=== PATIENT | female | born 1955 | race Caucasian/White ===

== ENCOUNTER 2023-07-29 15:51 | Inpatient (IN) | payer MEDICAID, SELFPAY ==
[2023-07-29] VITALS (11 sets, daily range): BP systolic 122–145; BP diastolic 58–98; PULSE 82–97; RESP 18–30; TEMP 35.8–36.6; O2SAT 94–100; BMI 31.6; BMI 31.2
--- NOTE | 2023-07-29 16:04 | EKG12_ITS ---
Test Reason : SOB Blood Pressure : / mmHG Vent. Rate : 089 BPM Atrial Rate : 089 BPM P-R Int : 152 ms QRS Dur : 068 ms QT Int : 350 ms P-R-T Axes : 082 043 070 degrees QTc Int : 425 ms Normal sinus rhythm Low voltage QRS Borderline ECG Confirmed by Nagi Queen ([id number]), editor house organ RICARDA BROWN ([id number]) on 07/30/2023 10:47:43 AM Referred By: UG/TL Confirmed By:Nagi Queen
--- NOTE | 2023-07-29 16:06 | EX.ED.DYSGE1 ---
HPI History of Present Illness Chief Complaint: Shortness of Breath Informant: patient Narrative Narrative: Increasing dyspnea and nonproductive cough with wheezing over 4 days. Stage IV COPD with remote tobacco followed by Dr. Nicole pulmonology. Denies diabetes history. 3 L chronic oxygen at rest 4 to 5 L with exertion. Increasing her aerosol treatments over last few days. She went to urgent care due to breathing issues EMS was contacted and sent here. She was brought on 15 nonrebreather taken down to her 4 L nasal cannula. Status post DuoNeb by EMS. Reported wheezing at facility. Discomfort right lower lungs. Last hospitalization 2010 per patient. Reports vaccinated for both COVID and flu denies COVID infections in the past. [facility] Medical History (Updated 07/29/23 @ 20:07 by Brittany Peterson) Chronic GERD COPD (chronic obstructive pulmonary disease) Fibromyalgia GERD (gastroesophageal reflux disease) HLD (hyperlipidemia) Hypothyroidism Myocardial infarct On home oxygen therapy Osteoarthritis Osteoporosis Stomach ulcer Stroke/cerebrovascular accident Home Medications alendronate 70 mg tablet 70 mg PO TH OSTEOPEROSIS 04/22/14 [History Last Taken 07/23/23] aspirin 81 mg chewable tablet 81 mg PO DAILY@0800 HEART HEALTH 04/22/14 [History Last Taken 07/29/23] estradiol 1 mg tablet 1 mg PO QHS HORMONES 04/22/14 [History Last Taken 07/28/23] furosemide 40 mg tablet 40 mg PO BID EDEMA 04/22/14 [History Last Taken 07/29/23] loratadine 10 mg tablet (Allergy Relief (loratadine)) 10 mg PO DAILY ALLERGIES 04/22/14 [History Last Taken 07/29/23] simvastatin 40 mg tablet 40 mg PO QHS CHOLESTEROL 04/22/14 [History Last Taken 07/28/23] tramadol 50 mg tablet 50 mg PO Q8H PRN PAIN 04/22/14 [History Last Taken 07/29/23] mometasone-formoterol HFA 200 mcg-5 mcg/actuation aerosol inhaler (Dulera) 2 puff inhalation BID COPD 11/18/15 [History Last Taken 07/29/23] albuterol sulfate 2.5 mg/3 mL (0.083 %) solution for nebulization 2.5 mg inhalation Q4H PRN WHEEZING 07/29/23 [History Last Taken 07/29/23] calcium carbonate 500 mg calcium (1,250 mg) chewable tablet (Calcium 500) 1,000 mg PO DAILY SUPPLEMENT 07/29/23 [History Last Taken 07/29/23] guaifenesin 600 mg tablet, extended release 12 hr (Mucus Relief ER) 1,200 mg PO BID PRN CONGESTION 07/29/23 [History Last Taken 07/29/23] levothyroxine 150 mcg tablet 150 mcg PO DAILY THYROID 07/29/23 [History Last Taken 07/29/23] magnesium oxide 500 mg PO DAILY SUPPLEMENT 07/29/23 [History Last Taken 07/29/23] melatonin 10 mg tablet 50 mg PO QHS SLEEP 07/29/23 [History Last Taken 07/28/23] pantoprazole 20 mg tablet,delayed release 20 mg PO DAILY ACID REFLUX 07/29/23 [History Last Taken 07/29/23] sennosides 8.6 mg tablet (senna) 8.6 mg PO BID PRN CONSTIPATION 07/29/23 [History Last Taken 07/29/23] theophylline 80 mg/15 mL oral solution 80 mg PO QHS COPD 07/29/23 [History Last Taken 07/28/23] tiotropium bromide 2.5 mcg/actuation mist for inhalation (Spiriva Respimat) 2 puff inhalation DAILY COPD 07/29/23 [History Last Taken 07/29/23] Allergy/AdvReac Type Severity Reaction Status Date / Time amoxicillin [Amoxicillin] Allergy Hives Verified 11/18/15 16:02 Social History Smoking Status: Former smoker ROS ROS ED Constitutional Constitutional ED: Denies chills, fever(s) or sweats Eyes Eyes: Denies change in vision ENT ENT ED: Denies dysphagia or sore throat Cardiovascular Cardiovascular: Denies chest pain, leg edema, palpitations or racing heartbeat Respiratory/Chest Respiratory/Chest: Reports cough and dyspnea; Denies dyspnea on exertion Gastrointestinal Gastrointestinal: Denies abdominal pain, diarrhea, nausea or vomiting Genitourinary Genitourinary ED: Denies dysuria, hematuria or urinary frequency Musculoskeletal Musculoskeletal: Denies back pain, extremity pain or neck pain Integumentary Denies rash or wounds Neurologic Neurologic: Denies headache(s), paresthesias or weakness EXAM Physical Exam Const Vital Signs: 07/29/23 15:53 07/29/23 15:59 07/29/23 16:00 Temperature 96.4 F L Temperature Source Temporal Pulse Rate 94 Respiratory Rate 30 H Respiratory Effort Short of Breath Labored Pursed Lip Respiratory Depth Shallow Respiratory Pattern Tachypnea Blood Pressure 137/98 H Blood Pressure Mean 111 Pulse Ox 100 Oxygen Delivery Method Non-Rebreather Nasal Cannula Oxygen Flow Rate (L/min) 15 4 07/29/23 17:03 07/29/23 16:52 07/29/23 17:00 Temperature 97.8 F Temperature Source Temporal Pulse Rate 82 85 Respiratory Rate 24 H 24 H Respiratory Effort Respiratory Depth Respiratory Pattern Blood Pressure 129/68 H 122/84 H Blood Pressure Mean 88 96 Pulse Ox 98 98 Oxygen Delivery Method Nasal Cannula Nasal Cannula Nasal Cannula Oxygen Flow Rate (L/min) 4 4 4 Positive well nourished and well developed Constitutional Narrative: Speaking in short sentences, slight pursed lip breathing. General Appearance ED: well developed and NAD HEENT Reports moist mucous membranes normocephalic and atraumatic Eyes PERRL, EOMs intact bilaterally and conjunctivae normal General Eye ED: Yes normal appearance of both eyes Neck no lymphadenopathy and supple General: Negative for tenderness Chest Wall Chest: Negative for tenderness Resp Resp Narrative: No active wheezing, diminished breath sounds at the bases. Effort and Inspection: symmetric chest movement; Negative for respiratory distress Cardio regular rate, regular rhythm and no murmurs Peripheral Pulses: pulses 2+ throughout GI normal to inspection, nondistended, normoactive bowel sounds and non-tender Palpation: Negative for guarding or rebound tenderness present Back/Spine no CVA tenderness and no thoracic nor lumbar tenderness Extremity normal to inspection General Extremety ED: Negative for edema or tenderness General Extremity: Negative for edema Neuro oriented x3 and no sensory deficits noted Sensorium / Orientation: awake and alert Skin no rashes or lesions noted and no wounds MDM MDM MDM Narrative Medical decision making narrative: Interventions / MDM: Differential diagnosis: COPD exacerbation Diagnosis considered but do not suspect: Pulmonary embolism, however history consistent with COPD exacerbation. My EKG interpretation: Sinus rate of 89, no ST or T wave changes. Imaging independently reviewed and interpreted by myself: 2 view chest x-ray: No acute process. External documents reviewed: N/A Test considered but not ordered:N/A ED course: Status post aerosol treatments from EMS she is continued on 4 L nasal cannula. Basic labs COVID flu RSV chest x-ray ordered. Solu-Medrol ordered. However shortly after per nursing today meds are given by EMS therefore this was held. 171: Chest x-ray negative. COVID flu RSV negative. EKG sinus rhythm. VBG pH 7.37 pCO2 60. Reevaluation improving however still slight pursed lip breathing. No distress. Potassium 3.2 creatinine 0.89. Oral replacement will be ordered. Due to symptoms not back at baseline, will discuss with hospital for admission for continued pulmonary toilet treatment and steroid therapy. I spoke with hospitalist Dr. Mckenzie for admission. 1817: Awaiting bed for transport. Reported by nursing increasing wheezing after getting off commode. Will order DuoNeb. Re-evaluation: stable Disposition discussed with patient/family/significant other: Patient Case discussed with consulting clinician: Hospitalist This note was generated with [employer] dictation software. It may contain incorrect words, spelling, and punctuation that were not noted in checking the note before signing. Lab Data Attestation: I reviewed the patient's lab results. Labs: Laboratory Results - last 24 hr 07/29/23 16:11 WBC 6.8 RBC 4.47 Hgb 13.4 Hct 39.8 MCV 89.0 MCH 30.0 MCHC 33.7 RDW Std Deviation 40.9 RDW Coeff of Vic 12.7 Plt Count 158 MPV 11.9 Immature Gran % (Auto) 0.300 Neut % (Auto) 66.0 Lymph % (Auto) 21.8 [place] % (Auto) 8.1 Eos % (Auto) 3.4 Baso % (Auto) 0.4 Absolute Neuts (auto) 4.5 Absolute Lymphs (auto) 1.48 Nucleated RBC % 0 Sodium 141 Potassium 3.2 L Chloride 100 Carbon Dioxide 37.0 H Anion Gap 4 L BUN 9 Creatinine 0.89 Estim Creat Clear Calc 66.47 Est GFR (MDRD) Af Amer 81 Est GFR (MDRD) Non-Af 67 BUN/Creatinine Ratio 10.1 Glucose 89 Calcium 9.5 ABG Data ABG results: ABG 07/29/23 16:15 Specimen Type JANICE Sample Site Not entered O2 % 4.0 VBG pH 7.38 VBG pO2 30 VBG HCO3 35 H VBG Total CO2 37 H VBG O2 Sat (Calc) 55 VBG Base Excess 10 H POC Mix VBG pCO2 Pt Tmp 60.2 H O2 Delivery Device Not entered Radiography Diagnostic Testing: Clinical Impression(s) from Imaging Studies Chest X-Ray 07/29/23 16:25 IMPRESSION: COPD Electronically Signed: Lobo Cannon MD at 17:02 EDT Reading Location ID and State: [address] [place] [address] Tel , Service support , Discharge Plan Dx/Rx/DC Orders Clinical Impression: COPD with acute exacerbation, Acute hypokalemia, Cough Disposition Disposition: Acute Care Hospital [facility] Discharge Date/Time: 07/29/23 19:30
[2023-07-29 16:18] LABS: Blood Gas Specimen Type VEN; O2 Delivery Device Not entered; SITE Not entered; VBG BASE EXCESS 10 mmol/L (-1.0-3.5); VBG Bicarbonate 35 mmol/L (22-26); VBG PO2 30 mmHg (25-40); VBG SO2 55 % (50-70); VBG TCO2 37 mmol/L (23-33); VBG pCO2 60.2 mmHg (41-51); VBG pH 7.38 (7.32-7.42)
--- NOTE | 2023-07-29 16:25 | RAD_ITS ---
STUDY: X-RAY CHEST REASON FOR EXAM: Female, 68 years old. cough TECHNIQUE: Frontal and lateral views of the chest. COMPARISON: None. FINDINGS: Lungs hyperaerated. The lungs are clear and expanded. There is no demonstrated pleural abnormality. Normal size heart. Normal mediastinum and corine. Normal visualized pulmonary arteries. Normal visualized aortic arch and descending thoracic aorta. Kyphosis. Normal visualized ribs, clavicles, and shoulders. There is no demonstrated abnormality of the visualized soft tissue structures of the upper abdomen. RAD/Chest PA and Lateral IMPRESSION: COPD Electronically Signed: Lobo Cannon MD at 17:02 EDT ,
[2023-07-29 16:26] LABS: Absolute Lymphocyte Count 1.48 X10^3/uL (0.83-4.51); Absolute Neutrophil Count 4.5 X10^3/uL (2.0-7.7); Basophil# 0.03 X10^3/uL; Basophil% 0.4 % (0-1); Eosinophil# 0.23 X10^3/uL; Eosinophils% 3.4 % (0-5); Hematocrit 39.8 % (37-47); Hemoglobin 13.4 g/dL (12.0-15.0); Lymphocyte # 1.48 X10^3/ul (0.83-4.51); Lymphocyte % 21.8 % (19-41); Mean Corp Hgb Conc 33.7 g/dL (32-36); Mean Platelet Vol. 11.9 fl (6.2-12.0); Monocyte# 0.55 X10^3/uL; Monocyte% 8.1 % (0-10); NRBC Flagged by Analyzer 0 % (0-5); Neutrophil # 4.48 X10^3/uL (2.7-7.7); Platelet Count 158 K/mm3 (150-450); RBC Distribution Width CV 12.7 % (11.6-14.6); RBC Distribution Width SD 40.9 fl (35.1-43.9); Red Blood Count 4.47 M/mm3 (4.2-5.4); White Blood Count 6.8 K/mm3 (4.4-11.0)
[2023-07-29 16:42] LABS: Anion Gap 4 (5-15); BUN 9 mg/dL (7-18); BUN/Creat Ratio 10.1 RATIO (10-20); Calcium,Total 9.5 mg/dL (8.5-10.1); Chloride 100 mmol/L (98-107); Creatinine, Serum 0.89 mg/dL (0.55-1.02); EST Glomerular Filtration Rate 67 mL/min (>60); Est Glom Filt Rate - Afr Amer 81 mL/min (>60); Estimated Creatinine Clearance 66.47 ml/min; Glucose 89 mg/dL (74-106); Potassium 3.2 mmol/L (3.5-5.1); Sodium Level 141 mmol/L (136-145)
--- NOTE | 2023-07-29 17:28 | PCM.HP.STD ---
HPI - General General Date of Admission: 07/29/23 Date of Service: 07/29/23 Chief Complaint: Worsening shortness of breath HPI Narrative LESTER PURCELL, is a 68 F who presented to [facility] ED on 07/29/2023 with worsening shortness of breath concerning for a COPD exacerbation. Patient seen at bedside in the ED. I saw her shortly after she had gone back in bed after using the bedside commode, and she had significant pursed lip breathing with mild increased respiration rate at rest. During our encounter, her respiration rate returned to normal and she had only mild pursed lip breathing. Patient states her shortness of breath has been getting worse over the past few weeks. She has a known history of COPD, follows with Dr. Sabra Palacios in the office. States she last saw Dr. Palacios at the end of June, notes that no medication changes were made at that time. She has been using her home inhalers as prescribed. States that she uses her DuoNebs 4 times daily and even used a few extra doses over the last few days with only minimal improvement. She lives at home with her son, and she is not able to do much around the home for self because she has significant shortness of breath with fairly limited exertion. She reports a cough but no sputum production over the past few weeks. She denies any fevers or chills. Denies any other pain or discomfort. No other acute concerns at this time. On arrival to the ED, patient was found to have moderate increased work of breathing and mild wheezing noted. She was given a dose of IV Solu-Medrol 125 mg as well as a DuoNeb treatment with mild improvement. COVID/flu/RSV panel was negative. Lab workup was fairly benign. Chest x-ray showed COPD changes but was otherwise nonacute. Hospitalist was contacted for admission for COPD exacerbation. Reviewed Dr. Palacios's office visit note from 07/09/23. Patient has very severe COPD with an FEV1 of 21%. She is on maximal inhaled therapy at this point but continues to have significant shortness of breath with limited exertion. Dr. Palacios noted that patient could be a candidate for NIV/AVAPS at night but patient declined to do the testing to qualify for this. Dr. Palacios noted that suppressive azithromycin could be considered for the patient but otherwise patient has few other therapeutic options. [facility] Medical History (Updated 07/29/23 @ 20:07 by Brittany Peterson) Chronic GERD COPD (chronic obstructive pulmonary disease) Fibromyalgia GERD (gastroesophageal reflux disease) HLD (hyperlipidemia) Hypothyroidism Myocardial infarct On home oxygen therapy Osteoarthritis Osteoporosis Stomach ulcer Stroke/cerebrovascular accident Home Medications alendronate 70 mg tablet 70 mg PO TH OSTEOPEROSIS 04/22/14 [History Last Taken 07/23/23] aspirin 81 mg chewable tablet 81 mg PO DAILY@0800 HEART HEALTH 04/22/14 [History Last Taken 07/29/23] estradiol 1 mg tablet 1 mg PO QHS HORMONES 04/22/14 [History Last Taken 07/28/23] furosemide 40 mg tablet 40 mg PO BID EDEMA 04/22/14 [History Last Taken 07/29/23] loratadine 10 mg tablet (Allergy Relief (loratadine)) 10 mg PO DAILY ALLERGIES 04/22/14 [History Last Taken 07/29/23] simvastatin 40 mg tablet 40 mg PO QHS CHOLESTEROL 04/22/14 [History Last Taken 07/28/23] tramadol 50 mg tablet 50 mg PO Q8H PRN PAIN 04/22/14 [History Last Taken 07/29/23] mometasone-formoterol HFA 200 mcg-5 mcg/actuation aerosol inhaler (Dulera) 2 puff inhalation BID COPD 11/18/15 [History Last Taken 07/29/23] albuterol sulfate 2.5 mg/3 mL (0.083 %) solution for nebulization 2.5 mg inhalation Q4H PRN WHEEZING 07/29/23 [History Last Taken 07/29/23] calcium carbonate 500 mg calcium (1,250 mg) chewable tablet (Calcium 500) 1,000 mg PO DAILY SUPPLEMENT 07/29/23 [History Last Taken 07/29/23] guaifenesin 600 mg tablet, extended release 12 hr (Mucus Relief ER) 1,200 mg PO BID PRN CONGESTION 07/29/23 [History Last Taken 07/29/23] levothyroxine 150 mcg tablet 150 mcg PO DAILY THYROID 07/29/23 [History Last Taken 07/29/23] magnesium oxide 500 mg PO DAILY SUPPLEMENT 07/29/23 [History Last Taken 07/29/23] melatonin 10 mg tablet 50 mg PO QHS SLEEP 07/29/23 [History Last Taken 07/28/23] pantoprazole 20 mg tablet,delayed release 20 mg PO DAILY ACID REFLUX 07/29/23 [History Last Taken 07/29/23] sennosides 8.6 mg tablet (senna) 8.6 mg PO BID PRN CONSTIPATION 07/29/23 [History Last Taken 07/29/23] theophylline 80 mg/15 mL oral solution 80 mg PO QHS COPD 07/29/23 [History Last Taken 07/28/23] tiotropium bromide 2.5 mcg/actuation mist for inhalation (Spiriva Respimat) 2 puff inhalation DAILY COPD 07/29/23 [History Last Taken 07/29/23] Allergy/AdvReac Type Severity Reaction Status Date / Time amoxicillin [Amoxicillin] Allergy Hives Verified 11/18/15 16:02 Social History Smoking Status: Former smoker ROS Constitutional Constitutional: Denies chills, fatigue, fever(s) or weakness Eyes Eyes: Denies change in vision Cardiovascular Cardiovascular: Reports dyspnea on exertion; Denies chest pain Respiratory/Chest Respiratory/Chest: Reports cough, shortness of breath at rest, shortness of breath with exertion and wheezing; Denies productive cough Gastrointestinal Gastrointestinal: Denies abdominal pain Vital Signs Vital Signs Vital Signs: 07/29/23 15:53 07/29/23 15:59 07/29/23 16:00 Temperature 96.4 F L Temperature Source Temporal Pulse Rate 94 Respiratory Rate 30 H Respiratory Effort Short of Breath Labored Pursed Lip Respiratory Depth Shallow Respiratory Pattern Tachypnea Blood Pressure 137/98 H Blood Pressure Mean 111 Pulse Ox 100 Oxygen Delivery Method Non-Rebreather Nasal Cannula Oxygen Flow Rate (L/min) 15 4 07/29/23 17:03 07/29/23 16:52 07/29/23 17:00 Temperature 97.8 F Temperature Source Temporal Pulse Rate 82 85 Respiratory Rate 24 H 24 H Respiratory Effort Respiratory Depth Respiratory Pattern Blood Pressure 129/68 H 122/84 H Blood Pressure Mean 88 96 Pulse Ox 98 98 Oxygen Delivery Method Nasal Cannula Nasal Cannula Nasal Cannula Oxygen Flow Rate (L/min) 4 4 4 Weight Weight: 86.1 kg Body Mass Index (BMI) 31.6 Physical Exam Const alert and oriented x3 Constitutional Narrative: Elderly female, obese, appears older than stated age, sitting up in bed, mild pursed lip breathing noted but patient otherwise was conversing normally and in no acute distress. General Appearance: cooperative HEENT normocephalic, head/scalp atraumatic, hearing grossly normal bilaterally, nasal mucous membranes and turbinates normal and moist oral mucous membranes Eyes PERRL, EOMs intact bilaterally and conjunctivae normal Neck full ROM Chest inspection of chest normal Resp Resp Narrative: Mild increased work of breathing noted on 4 L nasal cannula at rest. Significantly diminished breath sounds bilaterally throughout with mild wheezing noted in upper airways bilaterally. Cardio regular rate, regular rhythm, no murmurs and peripheral pulses 2+ throughout GI normal to inspection, nondistended, normoactive bowel sounds, soft to palpation, non-tender and non-distended Back/Spine normal ROM Extremity normal to inspection, full ROM and no pedal edema Skin no rashes or lesions noted Neuro moves all extremities and no focal motor deficits Psych mental status grossly normal Results Lab / Micro Data 07/29/23 16:11 07/29/23 16:11 Labs: Laboratory Results - last 24 hr 07/29/23 16:11: WBC 6.8, RBC 4.47, Hgb 13.4, Hct 39.8, MCV 89.0, MCH 30.0, MCHC 33.7, RDW Std Deviation 40.9, RDW Coeff of Vic 12.7, Plt Count 158, MPV 11.9, Immature Gran % (Auto) 0.300, Neut % (Auto) 66.0, Lymph % (Auto) 21.8, [place] % (Auto) 8.1, Eos % (Auto) 3.4, Baso % (Auto) 0.4, Absolute Neuts (auto) 4.5, Absolute Lymphs (auto) 1.48, Nucleated RBC % 0, Sodium 141, Potassium 3.2 L, Chloride 100, Carbon Dioxide 37.0 H, Anion Gap 4 L, BUN 9, Creatinine 0.89, Estim Creat Clear Calc 66.47, Est GFR (MDRD) Af Amer 81, Est GFR (MDRD) Non-Af 67, BUN/Creatinine Ratio 10.1, Glucose 89, Calcium 9.5 Micro: Microbiology 07/29/23 16:14 Mucosa - Nose SARS-CoV-2, Influenza & RSV (PCR) - Final ABG Data ABG results: ABG 07/29/23 16:15 Specimen Type JANICE Sample Site Not entered O2 % 4.0 VBG pH 7.38 VBG pO2 30 VBG HCO3 35 H VBG Total CO2 37 H VBG O2 Sat (Calc) 55 VBG Base Excess 10 H POC Mix VBG pCO2 Pt Tmp 60.2 H O2 Delivery Device Not entered Imaging Radiology Impression Chest X-Ray 07/29/23 16:25 IMPRESSION: COPD Electronically Signed: Lobo Cannon MD at 17:02 EDT Reading Location ID and State: [facility] / [place] Tel , Service support , Assessment & Plan Assessment/Plan (1) COPD with acute exacerbation: (2) Acute hypokalemia: PLAN: Plan Patient is a 68-year-old female who presented to [facility] ED on 07/29/2023 with worsening shortness of breath concerning for a COPD exacerbation. 1. Mild COPD exacerbation in setting of very severe COPD and chronic hypoxic respiratory failure ?See HPI for further details on COPD history. Follows with Dr. Sabra Palacios in the office. ? Suspect only a mild change at most from her baseline, given that her baseline respiratory function is very poor. Chest x-ray nonacute. Respiratory PCR panel negative. Hemodynamically stable, afebrile. Low concern for active pneumonia. ? Continue IV steroids and scheduled DuoNebs for now. Continue home long-acting inhalers. Per Dr. Palacios, can consider adding suppressive azithromycin suspect this not add much benefit for her. 2. Hypokalemia ? Potassium 3.2 on admit. Replete as needed. Chronic medical conditions: ? Obesity: BMI 31 on admit. Complicates hospital course, care and prognosis. ? Osteoporosis: On p.o. alendronate weekly on . Okay to hold while inpatient and resume at discharge. ? Menopause symptoms: Continue home estradiol. ? Lower extremity edema: Continue home Lasix. ? Hypothyroidism: Continue home Synthroid. ? Allergies: Continue home loratadine. ? GERD: Continue home PPI. ? Insomnia: Continue home melatonin. ? Hyperlipidemia: Continue home statin. DVT prophylaxis: Lovenox CODE STATUS: DNR CCA, DNI Expected disposition: Home, 1 to 2 days Total clinical time spent by myself addressing the patient's medical issues, reviewing all the data, and collaborating with patient's care team: 55 minutes. Charges/Coding Visit Charges Inpatient E&M: 41118 Init Hosp L2
[2023-07-29] MEDS: Potassium Chloride Oral Tablet 20 MEQ 40 MEQ PO (17:32)
[2023-07-29] MEDS: traMADol 50 MG Tablet PO (18:14)
[2023-07-29] MEDS: Ipratropium/Albuterol Sulfate 3 ML AMPUL.NEB INHALATION ×2 (18:27→22:59)
[2023-07-29] MEDS: Atorvastatin Calcium 20 MG Tablet PO (21:08)
[2023-07-29] MEDS: Estradiol 1 MG Tablet PO (21:08)
[2023-07-29] MEDS: guaiFENesin 1,200 MG Tablet 1200 MG PO (21:12)
[2023-07-29] MEDS: MELATONIN 10 MG TABLET 5 MG PO (21:12)
[2023-07-30] VITALS (8 sets, daily range): BP systolic 108–142; BP diastolic 63–92; PULSE 75–94; RESP 17–20; TEMP 36.4–36.8; O2SAT 96–99
[2023-07-30] MEDS: 0.9% Saline Lock 10 ML Syringe IV ×3 (05:30→22:23)
[2023-07-30] MEDS: Ipratropium/Albuterol Sulfate 3 ML AMPUL.NEB INHALATION ×4 (07:00→19:32)
[2023-07-30 07:36] LABS: Hematocrit 38.8 % (37-47); Hemoglobin 12.3 g/dL (12.0-15.0); Mean Corp Hgb Conc 31.7 g/dL (32-36); Mean Corpuscular Volume 88.2 fL (81-99); Mean Platelet Vol. 12.5 fl (6.2-12.0); Platelet Count 162 K/mm3 (150-450); RBC Distribution Width CV 12.5 % (11.6-14.6); RBC Distribution Width SD 40.7 fl (35.1-43.9); White Blood Count 5.9 K/mm3 (4.4-11.0)
[2023-07-30 07:52] LABS: Scan Indicated on CBC? Y/N NO
[2023-07-30 08:05] LABS: Anion Gap 6 (5-15); BUN 11 mg/dL (7-18); BUN/Creat Ratio 14.1 RATIO (10-20); Calcium,Total 9.2 mg/dL (8.5-10.1); Chloride 102 mmol/L (98-107); Creatinine, Serum 0.78 mg/dL (0.55-1.02); EST Glomerular Filtration Rate 78 mL/min (>60); Est Glom Filt Rate - Afr Amer 95 mL/min (>60); Estimated Creatinine Clearance 73.51 ml/min; Glucose 143 mg/dL (74-106); Potassium 4.1 mmol/L (3.5-5.1); Sodium Level 140 mmol/L (136-145)
[2023-07-30] MEDS: Enoxaparin 40 MG/0.4 ML Syringe SC (08:37)
[2023-07-30] MEDS: Loratadine 10 MG Tablet PO (08:37)
[2023-07-30] MEDS: Furosemide 40 MG Tablet PO ×2 (08:37→17:39)
[2023-07-30] MEDS: Pantoprazole Sodium 20 MG Tablet PO (08:37)
[2023-07-30] MEDS: Levothyroxine 150 MCG Tablet PO (08:37)
[2023-07-30] MEDS: Aspirin 81 MG TAB.CHEW PO (08:37)
[2023-07-30] MEDS: traMADol 50 MG Tablet PO ×2 (09:46→17:47)
--- NOTE | 2023-07-30 12:48 | CASEMGMT ---
Social Work SW assisted pt in completing LW/POA forms. She does not have her son Errol's address, will get this information this evening. SW will return tomorrow to complete the documents w/pt. EMERALD Luis
--- NOTE | 2023-07-30 13:03 | CASEMGMT ---
Addendum entered by Shaneka Donaldson 07/30/23 13:05: Cassy at [facility] aware that CCN was ordered to follow after [facility] completes. Updated Tigre of CCN also. Original Note: Received tc from Cassy at [facility], they are able to accept pt for SOC next week, will confirm date closer to me. Pt screened with [facility] Palliative Care Screening Tool, pt met criteria. Order received and referral to Palliative emailed at this time.
--- NOTE | 2023-07-30 13:24 | CASEMGMT ---
Addendum entered by Faiza Garcia 07/30/23 15:26: Social Work SW spoke w/Fabiana Mills, let her know pt is here, SW to call her when pt is ready for discharge. She states pt only has a life alert button, no other services. EMERALD Luis Original Note: Social Work SW left a message for Fabiana Mills, pt's Passport case filler, to let her know pt is in the hospital at present. EMERALD Luis
--- NOTE | 2023-07-30 13:52 | CASEMGMT ---
Addendum entered by Noreen Olvera 07/30/23 14:14: Per H/P, Dr Sabra Palacios had recommended NIV/AVAPS, but pt declined d/t not wanting to go through the testing. Pt states she may be interested in doing this now. She was made aware if overnight sleep-study needed, this will be done as an OP. She voices understanding. Addendum entered by Noreen Olvera 07/30/23 14:13: Assessment documented previously occurred @ 11:30 today. CCN and Pt Link discussed w/pt, to follow after [facility] discharges pt. She is interested in whichever one she qualifies for, stating I can use all the help I can get. Original Note: RN?CM?[employer]EL[employer]?CM?to room to meet with patient for initial transition planning/care coordination?assessment.?RN?CM?introduced self and role at [facility].? Pt voices understanding and consents to?assessment?at this time.? Pt resting in bed in no distress at this time.? Pt is A/O at this time and answers all questions appropriately.?? Care providers, pharmacy, and demographics verified/updated at this time. PCP: Dr Quiroz Specialists: Dr Sabra Palacios-pulmonology (just saw her 07/09/23) Preferred Pharmacy: [facility] Insurance: [facility] Prescription Benefit:?yes Living Will/HPOA:? Pt does not currently have LW/HCPOA and would like to complete. CESAR Munroe CM, made aware to states will notify SW. Pt made aware if SW unable to meet w/her for AD completion while she is @ [facility], this can be done as an OP. LNOK: 3 adult children. One son is [place] Living Arrangements: Lives w/her son, [place], in 2-story home w/one threshold step to enter. Bedroom and bathroom is upstairs on 2nd floor. No bathroom on main floor, but there is a chair lift to the 2nd floor that pt uses at times. Pt is independent w/ADL's, but states usually can only sponge-bath d/t SOB/fatigue's easily and states it takes awhile to get dressed. She does her own dishes and cooks her own meals, but does use [employer] delivery for groceries. She states she needs help w/laundry. She states she has a CM, Fabiana Lefty Gene from [facility] and qualifies for an aide, but currently no aides available. Transportation:?Pt states drives self and states no transportation concerns at this time.? Pt states she uses taxi passes at times and may need to use this @ discharge, although she states they often want 24-hr notice. [facility] Mun[facility] van transp available to take pt home @ discharge. DME: States has the following DME:?shower chair, BSC, medical alert, nebulizer, O2 through [employer]- 3 l/m @ rest and 5 l/m w/exert (needs verified). Pt has a concentrator and portable O2 tanks and has one in her room that she can go home on @ discharge. Pt has a 3 legged walker that she states is called a rollator, but it does not have a seat attached. There is a bag attached to it that she places her portable O2 tank in. Pt does not have a glucometer. Made aware, if MD wants her to check her BS's @ home after dc, a script for glucometer can be provided. She voices appreciation. She does not have a pulse ox, but her son in purchasing one for her. Pt states no need for further DME at this time.? HHC/SNF: No hx of either. Discussed discharge planning. Questions answered. Pt wishes to discharge home and would like [facility]. She declines wanting list of other HHC options unless [facility] unable to accept. Call to Phyllis @ [facility] and referral made. Palliative Care: Discussed w/pt and questions answered. She is interested in referral. CESAR Munroe CM, made aware. Pt wishes to return home and states has no concerns with going home at time of discharge.? Pt states does not smoke or drink ETOH. ?CM?to follow for home oxygen needs and any further discharge planning/needs.? Pt voices no further concerns/needs at this time.? Advised pt to ask for?CM?if any further questions/concerns/needs arise.? Voices understanding. PLAN:?? Home w/HHC. Follow for possible increase in home O2 needs. Follow for possible NIV. Palliative referral Follow for possible need of script for Glucometer SW for AD Saroj BSN?RN?CM
--- NOTE | 2023-07-30 17:40 | PCM.PN.HOSP ---
Reason for Visit Reason for Visit: Diagnoses Hypokalemia (07/30/23) Chronic obstructive pulmonary disease with (acute) exacerbation (07/30/23) Subjective Subjective Patient was seen and examined today, she is currently on 3 L of oxygen at rest via nasal cannula. Objective Data Objective Data Vital Signs: Vital Signs Temp Pulse Resp BP Pulse Ox O2 Del Method O2 Flow Rate 98.2 F 94 17 131/65 H 96 Nasal Cannula 3 07/30/23 09:00 07/30/23 11:40 07/30/23 11:40 07/30/23 09:00 07/30/23 09:00 07/30/23 09:00 07/30/23 09:00 Oxygen Flow Rate (L/min) 3 Oxygen Delivery Method Nasal Cannula Weight: 85.1 kg Body Mass Index (BMI) 31.2 Intake & Output: Intake and Output for Last 24 Hours 07/28/23 07/29/23 07/30/23 23:59 23:59 23:59 Intake Total 0 / 240 1140 / 1140 Balance 0 / 240 1140 / 1140 Lab / Micro Data 07/30/23 06:29 07/30/23 06:29 Labs: Laboratory Results - last 24 hr 07/30/23 06:29: WBC 5.9, RBC 4.40, Hgb 12.3, Hct 38.8, MCV 88.2, MCH 28.0, MCHC 31.7 L D, RDW Std Deviation 40.7, RDW Coeff of Vic 12.5, Plt Count 162, MPV 12.5 H, Sodium 140, Potassium 4.1, Chloride 102, Carbon Dioxide 32.0, Anion Gap 6, BUN 11, Creatinine 0.78, Estim Creat Clear Calc 73.51, Est GFR (MDRD) Af Amer 95, Est GFR (MDRD) Non-Af 78, BUN/Creatinine Ratio 14.1, Glucose 143 H, Calcium 9.2 Micro: Microbiology 07/29/23 16:14 Mucosa - Nose SARS-CoV-2, Influenza & RSV (PCR) - Final Physical Exam Const alert, oriented x3, no apparent distress and healthy appearing General Appearance: cooperative, well kempt and well developed Orientation / Consciousness: awake, oriented to person, oriented to place and oriented to time HEENT normocephalic, head/scalp atraumatic and moist oral mucous membranes Eyes PERRL, EOMs intact bilaterally and conjunctivae normal Neck supple, no JVD, thyroid normal and no carotid bruits General: trachea midline Resp normal respiratory effort, no retractions and no use of accessory muscles Resp Narrative: Patient has expiratory rhonchi bilaterally Auscultation: Negative for rales, rhonchi or wheezes Cardio regular rate, regular rhythm, S1 normal heart sound, S2 normal heart sound, no murmurs, no rub and no gallops GI normal to inspection, nondistended, normoactive bowel sounds, soft to palpation, non-tender and non-distended Extremity no clubbing, cyanosis or edema Skin no rashes or lesions noted General Skin Exam: no breakdown Neuro oriented x3, CN's II-XII intact bilaterally, moves all extremities, no focal motor deficits and no sensory deficits noted Sensorium / Orientation: awake, alert, oriented to person, oriented to place and oriented to time Speech: speech normal Psych affect normal Assessment & Plan Assessment/Plan (1) COPD with acute exacerbation: PLAN: Plan 1. Acute exacerbation of COPD-patient will remain on her present treatment #2 hypoxia with a backdrop of chronic hypoxic respiratory failure-patient's pulse ox will be monitored #3 hypokalemia-corrected at this time Total clinical time spent by myself addressing the patient's medical issues, reviewing all of her data, and collaborating with patient's care team: 35 minutes Charges/Coding Visit Charges Inpatient E&M: 28131 Subs Hosp L2
[2023-07-30] MEDS: Estradiol 1 MG Tablet PO (22:22)
[2023-07-30] MEDS: Atorvastatin Calcium 20 MG Tablet PO (22:23)
[2023-07-30] MEDS: THEOPHYLLINE ANHYDROUS 80 MG/15 ML PO (22:24)
[2023-07-30] MEDS: guaiFENesin 1,200 MG Tablet 1200 MG PO (22:37)
[2023-07-30] MEDS: MELATONIN 10 MG TABLET 5 MG PO (22:37)
[2023-07-31] MEDS: traMADol 50 MG Tablet PO ×2 (01:22→08:55)
[2023-07-31 05:40] VITALS: BP 130/69; PULSE 77; RESP 20; TEMP 36.6; O2SAT 97
[2023-07-31] MEDS: 0.9% Saline Lock 10 ML Syringe IV (05:45)
[2023-07-31] MEDS: Levothyroxine 150 MCG Tablet PO (05:45)
[2023-07-31 07:02] VITALS: PULSE 77; RESP 18; O2SAT 96
[2023-07-31] MEDS: Ipratropium/Albuterol Sulfate 3 ML AMPUL.NEB INHALATION ×3 (07:02→14:02)
[2023-07-31 08:30] VITALS: BP 137/75; PULSE 98; RESP 20; TEMP 36.6; O2SAT 95
[2023-07-31] MEDS: Furosemide 40 MG Tablet PO (08:41)
[2023-07-31] MEDS: Aspirin 81 MG TAB.CHEW PO (08:42)
[2023-07-31] MEDS: Loratadine 10 MG Tablet PO (08:42)
[2023-07-31] MEDS: Pantoprazole Sodium 20 MG Tablet PO (08:42)
[2023-07-31] MEDS: Enoxaparin 40 MG/0.4 ML Syringe SC (08:42)
[2023-07-31 11:15] VITALS: PULSE 80; RESP 18
--- NOTE | 2023-07-31 11:29 | DCINST_ITS ---
Discharge Instructions Diet Discharge Diet: No restrictions Activity Discharge Activity: Return to Normal Activity Weight Bearing Status: Full weight bearing Follow Up Care Test Results: Test results from this visit will be discussed in further detail at your follow- up appointment, if applicable. Discharge Plan Admission Admit Date/Time: 07/30/23 14:42 Primary Reason for Your Visit: Exacerbation of COPD Attending Provider: Jame Lovelace Primary Care Provider: Shakir Quiroz Consulting Providers: Virgilio Mckenzie Instructions Additional Instructions / Restrictions: 3 L of oxygen via nasal cannula ambulating and at rest Discharge Orders/Prescriptions Prescriptions: New prednisone 10 mg tablet 10 mg PO BID Qty: 30 0RF Rx Instructions: Two twice a day for 3 days, then 3 once a day for 3 days, then 2 once a day for 3 days, then 1/day for 3 days then stop Continued furosemide 40 MG tablet 40 mg PO BID alendronate 70 MG tablet 70 mg PO TH tramadol 50 MG tablet 50 mg PO Q8H PRN (Reason: PAIN ) simvastatin 40 MG tablet 40 mg PO QHS estradiol 1 MG tablet 1 mg PO QHS aspirin 81 MG tablet,chewable 81 mg PO DAILY@0800 loratadine [Allergy Relief (loratadine)] 10 MG tablet 10 mg PO DAILY Dulera 8.8 GM HFA aerosol inhaler 2 puff inhalation BID albuterol sulfate 2.5 mg /3 mL (0.083 %) solution for nebulization 2.5 mg inhalation Q4H PRN (Reason: WHEEZING ) levothyroxine 150 mcg tablet 150 mcg PO DAILY magnesium oxide 500 mg magnesium tablet 500 mg PO DAILY guaifenesin [Mucus Relief ER] 600 mg tablet extended release 12hr 1,200 mg PO BID PRN (Reason: CONGESTION ) pantoprazole 20 mg tablet,delayed release (DR/EC) 20 mg PO DAILY Spiriva Respimat 2.5 mcg/actuation mist 2 puff inhalation DAILY sennosides [senna] 8.6 mg tablet 8.6 mg PO BID PRN (Reason: CONSTIPATION ) theophylline 80 mg/15 mL solution 80 mg PO QHS calcium carbonate [Calcium 500] 500 mg calcium (1,250 mg) tablet,chewable 1,000 mg PO DAILY melatonin 10 mg tablet 50 mg PO QHS Referrals / Follow Up: Shakir Quiroz DO [Primary Care Provider] - Within 2 Weeks Disposition Disposition (needs filled in before D/C Order can be placed): Home, Self Care
--- NOTE | 2023-07-31 11:37 | CASEMGMT ---
Addendum entered by Shaneka Donaldson 07/31/23 13:06: CESAR COSME into pt room, pt aware that she does not need a change in her oxygen rx. She is also aware that a pallitive care referral was made and that [facility] will see her on Thursday. Pt denies any further needs at this time and is ready for dc. Original Note: TC eladio Madera at [facility] to make aware pt will dc today. Will plan on SOC for Thursday.
[2023-07-31 12:20] VITALS: O2SAT 94; O2SAT 97
--- NOTE | 2023-07-31 13:14 | DS.PCM_ITS ---
Providers Date of Admission: 07/30/23 Date of Discharge: 07/31/23 Primary Care Physician: Dr. Shakir Quiroz DO Reason For Visit: COPD EXACERBATION Diagnosis Discharge Diagnosis (1) COPD with acute exacerbation: Status: Chronic Code(s): J44.1 - Chronic obstructive pulmonary disease with (acute) exacerbation Plan 1. Acute exacerbation of COPD-patient will remain on her present treatment #2 hypoxia with a backdrop of chronic hypoxic respiratory failure-patient's pulse ox will be monitored #3 hypokalemia-corrected at this time Total clinical time spent by myself addressing the patient's medical issues, reviewing all of her data, and collaborating with patient's care team: 35 minutes Medications at Discharge Home Medications alendronate 70 mg tablet 70 mg PO TH OSTEOPEROSIS 04/22/14 aspirin 81 mg chewable tablet 81 mg PO DAILY@0800 HEART HEALTH 04/22/14 estradiol 1 mg tablet 1 mg PO QHS HORMONES 04/22/14 furosemide 40 mg tablet 40 mg PO BID EDEMA 04/22/14 loratadine 10 mg tablet (Allergy Relief (loratadine)) 10 mg PO DAILY ALLERGIES 04/22/14 simvastatin 40 mg tablet 40 mg PO QHS CHOLESTEROL 04/22/14 tramadol 50 mg tablet 50 mg PO Q8H PRN PAIN 04/22/14 mometasone-formoterol HFA 200 mcg-5 mcg/actuation aerosol inhaler (Dulera) 2 puff inhalation BID COPD 11/18/15 albuterol sulfate 2.5 mg/3 mL (0.083 %) solution for nebulization 2.5 mg inhalation Q4H PRN WHEEZING 07/29/23 calcium carbonate 500 mg calcium (1,250 mg) chewable tablet (Calcium 500) 1,000 mg PO DAILY SUPPLEMENT 07/29/23 guaifenesin 600 mg tablet, extended release 12 hr (Mucus Relief ER) 1,200 mg PO BID PRN CONGESTION 07/29/23 levothyroxine 150 mcg tablet 150 mcg PO DAILY THYROID 07/29/23 magnesium oxide 500 mg PO DAILY SUPPLEMENT 07/29/23 melatonin 10 mg tablet 50 mg PO QHS SLEEP 07/29/23 pantoprazole 20 mg tablet,delayed release 20 mg PO DAILY ACID REFLUX 07/29/23 sennosides 8.6 mg tablet (senna) 8.6 mg PO BID PRN CONSTIPATION 07/29/23 theophylline 80 mg/15 mL oral solution 80 mg PO QHS COPD 07/29/23 tiotropium bromide 2.5 mcg/actuation mist for inhalation (Spiriva Respimat) 2 puff inhalation DAILY COPD 07/29/23 prednisone 10 mg tablet 10 mg PO BID #30 tabs 07/31/23 Hospital Course Operations None Procedures None Summary of Care Provided Minutes Spent on Discharge: 31 Hospital Course: This 68-year-old white female was seen in the emergency room at [facility] with complaints of increasing shortness of breath, she has a history of COPD and is on chronic oxygen at home at 3 L. Chest x-ray was obtained in the emergency room, no active infiltrates were noted to be present, patient's labs were unremarkable except for potassium of 3.2. Patient's rapid antigens for COVID, influenza, and RSV were unremarkable. Patient was admitted to [place] [address], she was kept on supplemental oxygen which was monitored by pulse ox, she was given IV corticosteroids and was given aerosol treatments. Patient improved during her hospitalization. On 07/31/2023, patient was seen and examined: On examination she appeared in good health and spirits, she does not appear to be in any distress. Vital signs as documented. Skin warm and dry and without overt rashes. Neck without JVD, thyroid appears normal, trachea is midline, neck is supple. [id number] expiratory wheezing was noted over all lung [place], normal air movement was noted. Heart exam notable for regular rhythm, normal sounds and absence of murmurs, rubs or gallops. Abdomen unremarkable and without evidence of organomegaly, masses, or abdominal aortic enlargement, bowel sounds are present in all 4 quadrants, no abdominal tenderness was noted. Extremities nonedematous, no cyanosis was noted, no clubbing was noted. Neuro: Cranial nerves II through XII are grossly intact, no focal motor deficits were noted, sensation to light touch and pinprick is intact, motor exam 5/5 throughout. Psych: Patient is alert and oriented x3, she does not appear anxious or depressed, she does not appear agitated. Patient was felt to be stable for discharge home on 07/31/2023. Weight / BMI Weight Weight: 85.1 kg Body Mass Index (BMI) 31.2 ABG / Lab / Microbiology Data 07/30/23 06:29 07/30/23 06:29 Microbiology: Microbiology 07/29/23 16:14 Mucosa - Nose SARS-CoV-2, Influenza & RSV (PCR) - Final D/C Instructions Discharge Diet: No restrictions Weight Bearing Status: Full weight bearing Meaningful Use Info Meaningful Use Diagnoses (Choose all that apply): None applicable Discharge Plan Admission Admit Date/Time: 07/30/23 14:42 Primary Reason for Your Visit: Exacerbation of COPD Attending Provider: Jame Lovelace Primary Care Provider: Shakir Quiroz Consulting Providers: Virgilio Mckenzie Instructions Additional Instructions / Restrictions: 3 L of oxygen via nasal cannula ambulating and at rest Discharge Orders/Prescriptions Prescriptions: New prednisone 10 mg tablet 10 mg PO BID Qty: 30 0RF Rx Instructions: Two twice a day for 3 days, then 3 once a day for 3 days, then 2 once a day for 3 days, then 1/day for 3 days then stop Continued furosemide 40 MG tablet 40 mg PO BID alendronate 70 MG tablet 70 mg PO TH tramadol 50 MG tablet 50 mg PO Q8H PRN (Reason: PAIN ) simvastatin 40 MG tablet 40 mg PO QHS estradiol 1 MG tablet 1 mg PO QHS aspirin 81 MG tablet,chewable 81 mg PO DAILY@0800 loratadine [Allergy Relief (loratadine)] 10 MG tablet 10 mg PO DAILY Dulera 8.8 GM HFA aerosol inhaler 2 puff inhalation BID albuterol sulfate 2.5 mg /3 mL (0.083 %) solution for nebulization 2.5 mg inhalation Q4H PRN (Reason: WHEEZING ) levothyroxine 150 mcg tablet 150 mcg PO DAILY magnesium oxide 500 mg magnesium tablet 500 mg PO DAILY guaifenesin [Mucus Relief ER] 600 mg tablet extended release 12hr 1,200 mg PO BID PRN (Reason: CONGESTION ) pantoprazole 20 mg tablet,delayed release (DR/EC) 20 mg PO DAILY Spiriva Respimat 2.5 mcg/actuation mist 2 puff inhalation DAILY sennosides [senna] 8.6 mg tablet 8.6 mg PO BID PRN (Reason: CONSTIPATION ) theophylline 80 mg/15 mL solution 80 mg PO QHS calcium carbonate [Calcium 500] 500 mg calcium (1,250 mg) tablet,chewable 1,000 mg PO DAILY melatonin 10 mg tablet 50 mg PO QHS Referrals / Follow Up: Shakir Quiroz DO [Primary Care Provider] - Within 2 Weeks Disposition Disposition (needs filled in before D/C Order can be placed): Home, Self Care Charges/Coding Visit Charges Inpatient E&M: 66819 Disch Hosp >30min
[2023-07-31 14:03] VITALS: PULSE 85; RESP 18
--- NOTE | 2023-07-31 14:46 | CASEMGMT ---
Social Work TRUMAN Juliana spoke w/pt, pt does not have her son in [place]'s address, but does have his email. SW added the email to pt's POA papers, put a copy in the chart and gave pt the originals. Pt had informed SW yesterday she has 3 children, and her oldest son struggles with substance abuse, is not involved. At this time it seemed most appropriate to complete the POA papers, as all demographic information for the son listed as POA is on the document, and the son in [place] is the alternate, with the email address on the POA form. EMERALD Luis
--- NOTE | 2023-07-31 14:57 | CASEMGMT ---
Social Work Pt ready to discharge today. TRUMAN faxed discharge orders to pt's direction home home health care case manager Fabiana Mills. JUS Wallace
--- NOTE | 2023-09-22 10:56 | CCN.REFER ---
AGREEABLE TO CCN. HOME VISIT SCHEDULED FOR 10/07
--- NOTE | 2023-10-22 07:34 | CCN.REFER ---
CCN MADE HOME VISIT, AND PATIENT MADE NURSING AWARE SHE IS NOW HOSPICE.
== END 2023-07-31 14:34 | disposition home health service (06) | DRG 140 ==
LOC: ED 18:20 → MS3 07-30 05:16
PROVIDERS: Admitting Provider Hospitalist; Emergency Provider Emergency Medicine; PCP Student in an Organized Health Care Education/Training Program; Visit Provider Internal Medicine
DX: J44.1 Chronic obstructive pulmonary disease with (acute) exacerbation (principal); J96.11 Chronic respiratory failure with hypoxia; Z99.81 Dependence on supplemental oxygen; E03.9 Hypothyroidism, unspecified; E78.5 Hyperlipidemia, unspecified; K21.9 Gastro-esophageal reflux disease without esophagitis; E87.6 Hypokalemia; I25.2 Old myocardial infarction; E66.9 Obesity, unspecified; Z79.51 Long term (current) use of inhaled steroids; Z87.891 Personal history of nicotine dependence; Z79.82 Long term (current) use of aspirin; Z79.83 Long term (current) use of bisphosphonates; M81.0 Age-related osteoporosis without current pathological fracture; Z86.73 Personal history of transient ischemic attack (TIA), and cerebral infarction without residual deficits; Z79.899 Other long term (current) drug therapy; Z68.31 Body mass index [BMI] 31.0-31.9, adult; R60.0 Localized edema; G47.00 Insomnia, unspecified; N95.1 Menopausal and female climacteric states
CPT/HCPCS: 36415; 71046; 80048; 82803; 85025; 85027; 87631; 93005; 94640; 94668; 94762; 99285; A4216

== ENCOUNTER → 2024-02-11 | Outpatient (CLI) | payer MEDICAID, SELFPAY | END | disposition home or self-care (01) | LOC: LABSPEC 14:08 | PROVIDERS: PCP Student in an Organized Health Care Education/Training Program; Referring Provider Nurse Practitioner Family; Visit Provider Nurse Practitioner Family | DX: R35.0 Frequency of micturition (principal); R39.15 Urgency of urination | CPT/HCPCS: 87077; 87086; 87088; 87186 ==

== ENCOUNTER → 2024-03-18 | Outpatient (CLI) | payer MEDICAID, SELFPAY | END | disposition home or self-care (01) | LOC: LABSPEC 15:12 | PROVIDERS: PCP Student in an Organized Health Care Education/Training Program; Referring Provider Nurse Practitioner Primary Care; Visit Provider Nurse Practitioner Primary Care | DX: N39.0 Urinary tract infection, site not specified (principal) | CPT/HCPCS: 87077; 87086; 87088; 87186 ==

== ENCOUNTER 2024-03-22 16:31 | Inpatient (IN) | payer MEDICAID, SELFPAY ==
[2024-03-22] VITALS (8 sets, daily range): BP systolic 119–175; BP diastolic 62–103; PULSE 77–114; RESP 12–38; TEMP 36.3–36.6; O2SAT 97–100; BMI 35.5; BMI 33.5
--- NOTE | 2024-03-22 16:45 | RAD_ITS ---
STUDY: X-RAY CHEST REASON FOR EXAM: Female, 68 years old. sob, cough, copd TECHNIQUE: Single frontal view of the chest. COMPARISON: Bibasilar interstitial infiltrates and/or subsegmental atelectasis or scarring unchanged. FINDINGS: The lungs are clear and expanded. There is no demonstrated pleural abnormality. Normal size heart. Normal mediastinum and corine. Normal visualized pulmonary arteries. Normal visualized aortic arch and descending thoracic aorta. Normal visualized thoracic spine. Normal visualized ribs, clavicles, and shoulders. There is no demonstrated abnormality of the visualized soft tissue structures of the upper abdomen. RAD/Chest PA and Lateral IMPRESSION: Probable bibasilar scarring. Electronically Signed: Lobo Cannon MD at 17:24 EST ,
--- NOTE | 2024-03-22 16:48 | EDS_ITS ---
HPI History of Present Illness Chief Complaint: Flank Pain Informant: patient and EMS Narrative Narrative: 68-year-old female states she has had a urinary tract infection for 1 to 2 months, she is on several rounds of antibiotics, the hospice people that see her at home did another urine culture 4 days ago that returned positive/abnormal and she states they told me I have no other options for antibiotics and I could try the ER/hospital if I wanted to. She states she has no new symptoms except for coughing up some yellow sputum the other day. She has dyspnea on exertion that is not necessarily worse than usual. She is on 3 L of oxygen at home for severe COPD for which she is on hospice. She has been having pain in her right low back and her right mid back for the past month or 2. She relates the low back pain to her kidney in the mid back pain to her lung due to a pleural effusion she was told she has. She denies any nausea or vomiting or fever/chills. States she took a pain pill earlier and she declines offer for any analgesics right now and just would like a glass of water is otherwise doing okay. [facility] Medical History HLD (hyperlipidemia) Chronic GERD Fibromyalgia Osteoporosis Stomach ulcer GERD (gastroesophageal reflux disease) Osteoarthritis Hypothyroidism Myocardial infarct COPD (chronic obstructive pulmonary disease) On home oxygen therapy Stroke/cerebrovascular accident Cough Acute hypokalemia COPD with acute exacerbation Home Medications ?Medication ?Instructions ?Recorded ?Last Taken ?Type alendronate 70 mg tablet 70 mg PO TH OSTEOPEROSIS 04/22/14 03/17/24 History aspirin 81 mg chewable tablet 81 mg PO DAILY@0800 HEART HEALTH 04/22/14 03/22/24 History estradiol 1 mg tablet 1 mg PO QHS HORMONES 04/22/14 03/21/24 History simvastatin 40 mg tablet 40 mg PO QHS CHOLESTEROL 04/22/14 03/21/24 History tramadol 50 mg tablet 50 mg PO Q8H PRN PAIN 04/22/14 03/22/24 History albuterol sulfate 2.5 mg/3 mL 2.5 mg inhalation Q4H PRN WHEEZING 07/29/23 03/22/24 History (0.083 %) solution for nebulization calcium carbonate (Calcium 500) 1,000 mg PO DAILY SUPPLEMENT 07/29/23 03/22/24 History guaifenesin 600 mg tablet, 1,200 mg PO BID PRN CONGESTION 07/29/23 03/22/24 History extended release 12 hr (Mucus Relief ER) levothyroxine 150 mcg tablet 150 mcg PO DAILY THYROID 07/29/23 03/22/24 History magnesium oxide 500 mg PO DAILY SUPPLEMENT 07/29/23 03/22/24 History melatonin 10 mg tablet 60 mg PO QHS SLEEP 07/29/23 03/21/24 History theophylline 80 mg/15 mL oral 80 mg PO QHS COPD 07/29/23 03/21/24 History solution bumetanide 2 mg tablet 2 mg PO DAILY 03/22/24 03/22/24 History cetirizine 10 mg tablet 10 mg PO DAILY allergies 03/22/24 03/22/24 History cranberry extract 200 mg capsule 400 mg PO DAILY 03/22/24 03/22/24 History famotidine 20 mg tablet 20 mg PO DAILY 03/22/24 03/22/24 History ipratropium 0.5 mg-albuterol 3 mg 3 ml inhalation Q4H SOB 03/22/24 03/22/24 History (2.5 mg base)/3 mL nebulization soln loperamide 2 mg capsule 2 - 4 mg PO Q3H PRN diarrhea 03/22/24 03/21/24 History lorazepam 0.5 mg tablet 0.25 mg PO Q6H anxiety 03/22/24 03/22/24 History magnesium hydroxide 400 mg/5 mL 6 ml PO DAILY constipation 03/22/24 03/22/24 History oral suspension (Milk of Magnesia) morphine concentrate 100 mg/5 mL 10 mg PO Q4H PRN PRN pain 03/22/24 03/22/24 History (20 mg/mL) oral solution potassium chloride 20 mEq 20 meq PO DAILY 03/22/24 03/22/24 History tablet,extended release(part/cryst) (Klor-Con M) sennosides 8.6 mg-docusate sodium 4 tab PO BID 03/22/24 03/22/24 History 50 mg tablet (Senexon-S) Allergy/AdvReac Type Severity Reaction Status Date / Time amoxicillin (Amoxicillin) Allergy Hives Verified 03/22/24 16:32 Social History Smoking Status: Former smoker ROS ROS ED Constitutional Constitutional ED: Denies chills or fever(s) Eyes Eyes: Denies change in vision or diplopia ENT ENT ED: Denies rhinorrhea or sore throat Cardiovascular Cardiovascular: Denies chest pain or palpitations Respiratory/Chest Respiratory/Chest: Reports cough, dyspnea on exertion and sputum Gastrointestinal Gastrointestinal: Denies abdominal pain, diarrhea, nausea or vomiting Genitourinary Genitourinary ED: Denies dysuria or hematuria Musculoskeletal Musculoskeletal: Reports back pain; Denies neck pain Integumentary Denies abscess or rash Neurologic Neurologic: Denies headache(s), paresthesias or weakness Psychiatric Psychiatric: Denies anxiety or suicidal thoughts EXAM Physical Exam Const Vital Signs: 03/22/24 16:32 03/22/24 18:31 Temperature 98 F Temperature Source Oral Pulse Rate 93 77 Respiratory Rate 31 H 27 H Blood Pressure 153/103 H 122/62 H Blood Pressure Mean 119 82 Pulse Ox 98 97 Oxygen Delivery Method Nasal Cannula Oxygen Flow Rate (L/min) 3 Positive well nourished, well developed and obese General Appearance ED: well developed and NAD Nutritional Appearance: obese HEENT Reports moist mucous membranes normocephalic and atraumatic Eyes PERRL and EOMs intact bilaterally Neck full ROM and supple Resp Resp Narrative: No respiratory distress but becomes a little tachypneic with actively sitting up in bed temporarily. Severely diminished breath sounds throughout, equal bilaterally, mild expiratory wheezes and prolonged expiratory phase but otherwise clear. Effort and Inspection: able to speak in complete sentences Cardio regular rate, regular rhythm and no murmurs GI non-tender and non-distended Auscultation: normoactive bowel sounds Palpation: soft Back/Spine no CVA tenderness Back/Spine Narrative: Mild tenderness where she has pain at the right pelvic brim, which is where patient is showing her kidney pain is. General Back: other FROM Extremity normal to inspection General Extremety ED: Yes edema; Negative for pulses abnormal or tenderness General Extremity: edema bilateral lower extremity Details: moderate; Negative for pulses abnormal Neuro oriented x3, CN's II-XII intact bilaterally and no sensory deficits noted Sensorium / Orientation: awake and alert Motor Exam: strength 5/5 throughout Psych mental status grossly normal Skin no rashes or lesions noted and no wounds MDM MDM MDM Narrative Medical decision making narrative: Awaiting for patient to urinate, but I do not require a new specimen in order to treat her since she has a recent culture showing ESBL Klebsiella infection in her urine. Going to coordinate this, IV meropenem is given. Basic labs and lactate are noted, her lactate is a little high clinically she is not meeting criteria for sepsis. Discussed with hospitalist for admission. History & Record Review Additional record(s) reviewed:: Prior labs (2 separate urine cultures one from 02/10 and one from 03/18 both showing ESBL Klebsiella pneumonia greater than 100,000 CFU per mL, sensitive only to parenteral antibiotics with the exception of tetracycline.) Lab Data Attestation: I reviewed the patient's lab results. Labs: Laboratory Results - last 24 hr 03/22/24 16:52 WBC 10.3 RBC 4.30 Hgb 12.2 Hct 39.3 MCV 91.4 MCH 28.4 MCHC 31.0 L RDW Std Deviation 44.6 H RDW Coeff of Vic 13.2 Plt Count 186 MPV 11.2 Immature Gran % (Auto) 0.600 Neut % (Auto) 90.6 H Lymph % (Auto) 5.5 L [place] % (Auto) 2.8 Eos % (Auto) 0.3 Baso % (Auto) 0.2 Absolute Neuts (auto) 9.3 H Absolute Lymphs (auto) 0.56 L Nucleated RBC % 0 Sodium 141 Potassium 3.9 Chloride 100 Carbon Dioxide 36.0 H Anion Gap 5 BUN 19 H Creatinine 1.32 H Estim Creat Clear Calc 47.63 Est GFR (MDRD) Af Amer 52 L Est GFR (MDRD) Non-Af 43 L BUN/Creatinine Ratio 14.4 Glucose 122 H Lactic Acid 2.2 H* Calcium 9.6 Radiography Diagnostic Testing: Clinical Impression(s) from Imaging Studies Chest X-Ray 03/22/24 16:45 IMPRESSION: Probable bibasilar scarring. Electronically Signed: Lobo Cannon MD at 17:24 EST , Management Discussion w/another healthcare provider: Hospitalist Discharge Plan Dx/Rx/DC Orders Clinical Impression: Urinary tract infection due to ESBL Klebsiella, Failure of outpatient treatment, COPD, severe Disposition Disposition: Acute Care Hospital [facility]
[2024-03-22 17:05] LABS: Absolute Lymphocyte Count 0.56 X10^3/uL (0.83-4.51); Absolute Neutrophil Count 9.3 X10^3/uL (2.0-7.7); Basophil# 0.02 X10^3/uL; Basophil% 0.2 % (0-1); Eosinophil# 0.03 X10^3/uL; Eosinophils% 0.3 % (0-5); Hematocrit 39.3 % (37-47); Hemoglobin 12.2 g/dL (12.0-15.0); Lymphocyte # 0.56 X10^3/ul (0.83-4.51); Lymphocyte % 5.5 % (19-41); Mean Corpuscular Hgb 28.4 pg (27.0-32.0); Mean Corpuscular Volume 91.4 fL (81-99); Mean Platelet Vol. 11.2 fl (6.2-12.0); Monocyte# 0.29 X10^3/uL; Monocyte% 2.8 % (0-10); NRBC Flagged by Analyzer 0 % (0-5); Neutrophil # 9.31 X10^3/uL (2.7-7.7); Neutrophil % 90.6 % (47-70); POSITIVE DIFFERENTIAL YES; Platelet Count 186 K/mm3 (150-450); RBC Distribution Width CV 13.2 % (11.6-14.6); RBC Distribution Width SD 44.6 fl (35.1-43.9); White Blood Count 10.3 K/mm3 (4.4-11.0)
[2024-03-22 17:17] LABS: Anion Gap 5 (5-15); BUN 19 mg/dL (7-18); BUN/Creat Ratio 14.4 RATIO (10-20); Calcium,Total 9.6 mg/dL (8.5-10.1); Chloride 100 mmol/L (98-107); Creatinine, Serum 1.32 mg/dL (0.55-1.02); EST Glomerular Filtration Rate 43 mL/min (>60); Est Glom Filt Rate - Afr Amer 52 mL/min (>60); Estimated Creatinine Clearance 47.63 ml/min; Glucose 122 mg/dL (74-106); Potassium 3.9 mmol/L (3.5-5.1); Sodium Level 141 mmol/L (136-145)
[2024-03-22] MEDS: Meropenem 2 GM in 0.9% Normal Saline (100mL Bag) 100 ML IV (17:23)
[2024-03-22 17:44] LABS: Lactic Acid 2.2 mmol/L (0.4-1.9)
--- NOTE | 2024-03-22 19:29 | PCM.HP.STD ---
HPI - General General Date of Admission: 03/22/24 Date of Service: 03/22/24 Chief Complaint: Persistant UTI, UCx results necessitating IV medications, referred to ED. HPI Narrative The patient is a 68 y/o F w/ PMHx: CKD stage II per GFR trending, HTN, HLD, Obesity, GERD w/ Hx gastric ulcer, Hypothyroidism, COPD w/ Allergic Rhinits w/ Chronic Hypoxic and Hypercabic Respiratory Failure (3L NC) reported as severe per Pulmonary Dr. Palacios (FEV1 21%) on maximal therapy with chronic dyspnea, potentially future AVAPs qHS candidate but declined further evaluation, possibly future chronic azithromycin, Former tobacco use who presents to the [facility] ED on 03/22/24 with history of urinary tract infection intermittently over the last 1 to 2 months with several rounds of antibiotic therapy with hospice evaluation at home recently with another urine culture which returned abnormal as well as ongoing chronic pulmonary stable symptoms although she does report a mild cough recently with some yellow sputum but this is scant and chronic dyspnea on exertion which is unchanged on her chronic supplementation with persistent flank and lumbar and right mid back pain over the last 2 months also unchanged with no nausea, emesis, fevers or chills but per their recommendation as they deemed the likely necessity of IV antibiotic therapy prompted ED evaluation. She states that she has had primarily right sided flank discomfort and has been using pain medication specifically tramadol for this. She currently rates the discomfort 7 out of 10 in severity and notes it is aching throbbing in nature. Workup in the ED included T98, heart rate 93, BP 153/103, respiratory rate 31, 98% on 3 L nasal cannula with most recent repeat vital signs previous to this noted 07/31/2023 patient utilizing 3 L nasal cannula at that time with most recent repeat vitals heart rate 77, BP 122/62, respiratory rate 27, 97% on 3 L nasal cannula, CBC with WC 10.3, human 12.2, platelet 186 with left shift and lymphopenia, BMP with carbon oxide 36, BUN/creatinine 19/1.32, GFR 43, glucose 122, lactic acid 2.2, chest x-ray with probable bibasilar scarring. In the ED patient administered Merrem 2 g IV x 1. Most recent urine culture noted 03/18/2024 with ESBL Klebsiella pneumonia similar to 02/11/2024 with urine sensitivities including penem therapies. [facility] Medical History Former tobacco use Allergic rhinitis CKD (chronic kidney disease), stage II HLD (hyperlipidemia) Chronic GERD Fibromyalgia Osteoporosis Stomach ulcer GERD (gastroesophageal reflux disease) Osteoarthritis Hypothyroidism Myocardial infarct COPD (chronic obstructive pulmonary disease) On home oxygen therapy Stroke/cerebrovascular accident Home Medications ?Medication ?Instructions ?Recorded ?Last Taken ?Type alendronate 70 mg tablet 70 mg PO TH OSTEOPEROSIS 04/22/14 03/17/24 History aspirin 81 mg chewable tablet 81 mg PO DAILY@0800 HEART HEALTH 04/22/14 03/22/24 History estradiol 1 mg tablet 1 mg PO QHS HORMONES 04/22/14 03/21/24 History simvastatin 40 mg tablet 40 mg PO QHS CHOLESTEROL 04/22/14 03/21/24 History tramadol 50 mg tablet 50 mg PO Q8H PRN PAIN 04/22/14 03/22/24 History albuterol sulfate 2.5 mg/3 mL 2.5 mg inhalation Q4H PRN WHEEZING 07/29/23 03/22/24 History (0.083 %) solution for nebulization calcium carbonate (Calcium 500) 1,000 mg PO DAILY SUPPLEMENT 07/29/23 03/22/24 History guaifenesin 600 mg tablet, 1,200 mg PO BID PRN CONGESTION 07/29/23 03/22/24 History extended release 12 hr (Mucus Relief ER) levothyroxine 150 mcg tablet 150 mcg PO DAILY THYROID 07/29/23 03/22/24 History magnesium oxide 500 mg PO DAILY SUPPLEMENT 07/29/23 03/22/24 History melatonin 10 mg tablet 60 mg PO QHS SLEEP 07/29/23 03/21/24 History theophylline 80 mg/15 mL oral 80 mg PO QHS COPD 07/29/23 03/21/24 History solution bumetanide 2 mg tablet 2 mg PO DAILY 03/22/24 03/22/24 History cetirizine 10 mg tablet 10 mg PO DAILY allergies 03/22/24 03/22/24 History cranberry extract 200 mg capsule 400 mg PO DAILY 03/22/24 03/22/24 History famotidine 20 mg tablet 20 mg PO DAILY 03/22/24 03/22/24 History ipratropium 0.5 mg-albuterol 3 mg 3 ml inhalation Q4H SOB 03/22/24 03/22/24 History (2.5 mg base)/3 mL nebulization soln loperamide 2 mg capsule 2 - 4 mg PO Q3H PRN diarrhea 03/22/24 03/21/24 History lorazepam 0.5 mg tablet 0.25 mg PO Q6H anxiety 03/22/24 03/22/24 History magnesium hydroxide 400 mg/5 mL 6 ml PO DAILY constipation 03/22/24 03/22/24 History oral suspension (Milk of Magnesia) morphine concentrate 100 mg/5 mL 10 mg PO Q4H PRN PRN pain 03/22/24 03/22/24 History (20 mg/mL) oral solution potassium chloride 20 mEq 20 meq PO DAILY 03/22/24 03/22/24 History tablet,extended release(part/cryst) (Klor-Con M) sennosides 8.6 mg-docusate sodium 4 tab PO BID 03/22/24 03/22/24 History 50 mg tablet (Senexon-S) Allergy/AdvReac Type Severity Reaction Status Date / Time amoxicillin (Amoxicillin) Allergy Hives Verified 03/22/24 16:32 Family History Mother COPD (chronic obstructive pulmonary disease) Grandmother Diabetes Paternal grandmother Brother Diabetes Father MVA (motor vehicle accident) young from MVA, no medication history otherwise. Surgical History History of nasal septoplasty History of bilateral tubal ligation History of hysterectomy History of tonsillectomy and adenoidectomy Social History household members: children Smoking Status: Former smoker how long ago did patient quit smoking: Quit 10 yrs prior, smoked 1-2 ppd since teen until quit. alcohol intake: never substance use type: does not use ROS ROS Narrative Admission Review of Systems: CONSTITUTIONAL: No weight loss, fever, chills, + weakness or fatigue. HEENT: Eyes: No visual loss, blurred vision, double vision or yellow sclerae. Ears, Nose, Throat: No hearing loss, sneezing, congestion, runny nose or sore throat. SKIN: No rash or itching, lesions, wounds. CARDIOVASCULAR: No chest pain, chest pressure or chest discomfort, palpitations, edema, orthopnea, syncopal events. RESPIRATORY: + Chronic shortness of breath, occasional cough, occasional scant sputum, intermittent wheezing. No hemoptysis. GASTROINTESTINAL: No anorexia, nausea, vomiting or diarrhea, abdominal pain, melena, BRBPR. GENITOURINARY: + Flank pain, occasional strong smelling urine. No dysuria, frequency, urgency or retention. NEUROLOGICAL: No headache, dizziness, syncope, paralysis, ataxia, numbness or tingling in the extremities, focal weakness, change in bowel or bladder control, seizure. MUSCULOSKELETAL: No muscle, back pain, joint pain or stiffness. HEMATOLOGIC: No anemia, bleeding or bruising. LYMPHATICS: No enlarged nodes. No history of splenectomy. PSYCHIATRIC: No history of depression or anxiety. ENDOCRINOLOGIC: + reports of sweating, cold or heat intolerance. No polyuria or polydipsia. ALLERGIES: + Hx Hives and rhinitis. Vital Signs Vital Signs Vital Signs: 03/22/24 16:32 03/22/24 18:31 Temperature 98 F Temperature Source Oral Pulse Rate 93 77 Respiratory Rate 31 H 27 H Blood Pressure 153/103 H 122/62 H Blood Pressure Mean 119 82 Pulse Ox 98 97 Oxygen Delivery Method Nasal Cannula Oxygen Flow Rate (L/min) 3 Weight Weight: 213 lb 10.047 oz Body Mass Index (BMI) 35.5 Physical Exam Narrative Physical Examination: General: Awake, alert, oriented x 3 and cooperative, seated upright in the ED bed in no apparent distress, fatigued, notes flank discomfort to the right side 7 out of 10 in severity currently. Skin: Normal color, normal turgor, no icterus, no cyanosis except occasional abrasion. HEENT: AT/NC, EOMI, PERRLA, mildly dry MM, no carotid bruits or JVD noted. Lungs: Significantly diminished, greater bases, mildly increased effort but no distress, on supplemental oxygen, occasional end expiratory wheeze, rales or rhonchi. Heart: Regular rate and rhythm; no gallop, rub audible. Abdomen: Soft, obese, NTTP, ND, mildly hyperactive BS, no appreciated HSM. Extremities: No cyanosis, no clubbing, mild pedal to distal sales edema, noted for patient to be chronic. Neurological: Patient awake, alert, oriented as noted, cognitive function intact; pupils equally reactive to light and accommodation, cranial nerves gross normal, moving all 4 extremities, no focal deficits, strength moderately to severely globally decreased primary secondary to underlying significant comorbidities and the hospice program. Psychiatric: Affect appears fatigued otherwise normal, no acute evidence of depressive or anxiety feelings. Results Lab / Micro Data 03/22/24 16:52 03/22/24 16:52 Labs: Laboratory Results - last 24 hr 03/22/24 16:52: WBC 10.3, RBC 4.30, Hgb 12.2, Hct 39.3, MCV 91.4, MCH 28.4, MCHC 31.0 L, RDW Std Deviation 44.6 H, RDW Coeff of Vic 13.2, Plt Count 186, MPV 11.2, Immature Gran % (Auto) 0.600, Neut % (Auto) 90.6 H, Lymph % (Auto) 5.5 L, [place] % (Auto) 2.8, Eos % (Auto) 0.3, Baso % (Auto) 0.2, Absolute Neuts (auto) 9.3 H, Absolute Lymphs (auto) 0.56 L, Nucleated RBC % 0, Sodium 141, Potassium 3.9, Chloride 100, Carbon Dioxide 36.0 H, Anion Gap 5, BUN 19 H, Creatinine 1.32 H, Estim Creat Clear Calc 47.63, Est GFR (MDRD) Af Amer 52 L, Est GFR (MDRD) Non-Af 43 L, BUN/Creatinine Ratio 14.4, Glucose 122 H, Lactic Acid 2.2 H*, Calcium 9.6 Imaging Radiology Impression Chest X-Ray 03/22/24 16:45 IMPRESSION: Probable bibasilar scarring. Electronically Signed: Lobo Cannon MD at 17:24 EST , Assessment & Plan Assessment/Plan (1) Failure of outpatient treatment: (2) Urinary tract infection due to ESBL Klebsiella: PLAN: Plan The patient is a 68 y/o F w/ PMHx: CKD stage II per GFR trending, HTN, HLD, Obesity, GERD w/ Hx gastric ulcer, Hypothyroidism, COPD w/ Allergic Rhinits w/ Chronic Hypoxic and Hypercabic Respiratory Failure (3L NC), Former tobacco use who presents to the [facility] ED on 03/22/24 with history of urinary tract infection intermittently over the last 1 to 2 months with several rounds of antibiotic therapy with hospice evaluation at home recently with another urine culture which returned abnormal as well as ongoing chronic pulmonary stable symptoms although she does report a mild cough recently with some yellow sputum but this is scant and chronic dyspnea on exertion which is unchanged on her chronic supplementation with persistent lumbar and right mid back pain over the last 2 months also unchanged with no nausea, emesis, fevers or chills but per their recommendation as they deemed the likely necessity of IV antibiotic therapy prompted ED evaluation. #1. Acute Complicated ESBL Klebsiella pneumonia Urinary Tract Infection w/ Hx Multidrug resistance organisms w/ Failure of outpatient antibiotic therapies with intractable flank/back pain: Will admit to MS, continue IVFs, monitor I/Os, continue IV Meropenem, ID consulted. PT/OT/CM consulted for discharge planning. #2. Acutely elevated creatinine/renal insufficiency on CKD stage II per prior GFR trend: Admission BUN/creatinine 19/1.32, GFR 43, baseline previous to this creatinine 0.7-0.8, GFR baseline previous to this 60-70 range, will hydrate, cautiously use nephrotoxic medications and repeat CMP in AM. #3. Chronic COPD w/ Allergic Rhinitis w/ Chronic Hypoxic and Hypercapnic Respiratory Failure (3L NC): Per records patient reported as severe per Pulmonary Dr. Palacios (FEV1 21%) on maximal therapy with chronic dyspnea, [facility] but declined further evaluation, possibly future chronic azithromycin: Will maintain on home oxygen supplementation, continue ATC duonebs, PRN albuterol, HOB, IS parameters, continue patient on theophylline regimen. #4. Hypertension: Continue home regimen including bumetanide cautiously given renal function, low threshold to hold if necessary and will not dose again until 03/23/2024 given planned hydration as noted, PRN hydralazine. #5. Chronic insomnia: Will continue patient home melatonin, significantly elevated usage level of note. #6. Chronic bilateral lower extremity lymphedema: Continue cautiously as noted patient bumetanide, will place neck [place] wraps with elevation. #7. Hypothyroidism: Will continue patient on levothyroxine regimen. #8. Former tobacco use: Encourage continued tobacco cessation. #9. Hyperlipidemia: Continue home statin regimen. #10. Obesity: Weight loss and lifestyle changes encouraged. #11. Allergic rhinitis: We will continue patient home cetirizine. #12. GERD w/ Hx gastric ulcer: Will continue patient on famotidine. #13. DVT prophylaxis: Lovenox. #14. CODE status: Per previous records patient had been DNR-CCA, no intubation status and is specifically following with hospice. She is temporarily revoked hospice to be able to be admitted and treated for the urinary tract infection. Patient ERIKA is her son she notes and living will is not currently in place. Discussed CODE status at length including difference between FULL code, DNR-CCA and DNR-CC status. Following discussions about the differences in these status, requested change from this prior status to full code. Given her history and underlying comorbidities and the hospice program discussed the poor prognosis/likelihood of a good outcome and despite this patient would like to at this time remain a full code. Advanced Care Planning Face to Face Time: 16 minutes. Charges/Coding Visit Charges Inpatient E&M: 44158 Init Hosp L3 Procedures Hospitalists Procedures: 76640 Advncd Care Plan 30 Min
[2024-03-22 20:58] LABS: Reflex Lactate? Y
[2024-03-22] MEDS: 0.9% Normal Saline (1000mL) 1,000 ML 100 ML IV (21:31)
[2024-03-22] MEDS: 0.9% Saline Lock 10 ML Syringe IV ×2 (21:37→22:00)
[2024-03-22] MEDS: hydrALAZINE 20 MG/ML Vial 10 MG IV (22:00)
[2024-03-22] MEDS: Atorvastatin Calcium 20 MG Tablet PO (22:16)
[2024-03-22] MEDS: LORazepam 0.5 MG Tablet 0.25 MG PO (22:16)
[2024-03-22] MEDS: Estradiol 1 MG Tablet PO (22:17)
[2024-03-22] MEDS: Senna/Docusate Sodium 1 Tablet 4 TABLET PO (22:17)
[2024-03-22] MEDS: Ipratropium/Albuterol Sulfate 3 ML AMPUL.NEB INHALATION (22:20)
[2024-03-22] MEDS: Albuterol 2.5 MG/3 ML VIAL.NEB. INHALATION (22:24)
[2024-03-22] MEDS: MELATONIN 10 MG TABLET 60 MG PO (22:33)
[2024-03-22] MEDS: morphine (oral solution) 10MG/0.5ML Syringe 10 MG PO (22:33)
[2024-03-22 23:08] LABS: Lactic Acid 1.2 mmol/L (0.4-1.9)
[2024-03-23] VITALS (19 sets, daily range): BP systolic 105–123; BP diastolic 59–99; PULSE 70–92; RESP 12–24; TEMP 36.4–36.8; O2SAT 94–100; BMI 33.5
[2024-03-23] MEDS: Ipratropium/Albuterol Sulfate 3 ML AMPUL.NEB INHALATION ×5 (02:45→22:37)
[2024-03-23] MEDS: LORazepam 0.5 MG Tablet 0.25 MG PO ×4 (05:07→23:00)
[2024-03-23] MEDS: Levothyroxine 150 MCG Tablet PO (05:07)
[2024-03-23 05:51] LABS: Mucous, Urine 0 SEEN /hpf (<or=2+)
[2024-03-23 05:53] LABS: Color, Urine Yellow (Yellow); Glucose, Dipstick Normal (Normal); Ketone-Dipstick Negative (Negative); Leukocyte Esterase-Dipstick 500 /ul (Negative); Nitrite-Dipstick Negative (Negative); Occult Blood-Urine Negative /ul (Negative); Protein-Dipstick Negative (Negative); Urine Bilirubin Dipstick Negative (Negative); Urine Clarity Sl. Cloudy (Clear); Urine Urobilinogen Normal (Normal)
[2024-03-23 06:07] LABS: Absolute Lymphocyte Count 2.28 X10^3/uL (0.83-4.51); Basophil# 0.03 X10^3/uL; Basophil% 0.3 % (0-1); Eosinophil# 0.21 X10^3/uL; Eosinophils% 2.1 % (0-5); Hemoglobin 11.7 g/dL (12.0-15.0); Lymphocyte # 2.28 X10^3/ul (0.83-4.51); Lymphocyte % 22.3 % (19-41); Mean Corp Hgb Conc 30.8 g/dL (32-36); Mean Corpuscular Hgb 28.7 pg (27.0-32.0); Mean Corpuscular Volume 93.4 fL (81-99); Mean Platelet Vol. 11.9 fl (6.2-12.0); Monocyte# 0.65 X10^3/uL; Monocyte% 6.4 % (0-10); NRBC Flagged by Analyzer 0 % (0-5); Neutrophil # 6.98 X10^3/uL (2.7-7.7); Neutrophil % 68.2 % (47-70); Platelet Count 177 K/mm3 (150-450); RBC Distribution Width CV 13.2 % (11.6-14.6); RBC Distribution Width SD 44.9 fl (35.1-43.9); Red Blood Count 4.07 M/mm3 (4.2-5.4); White Blood Count 10.2 K/mm3 (4.4-11.0)
[2024-03-23 06:14] LABS: White Blood Cells 25-50 SEEN /hpf (0-5)
[2024-03-23 06:15] LABS: Bacteria 1+ /hpf (None Seen); Red Blood Cells-Urine 0-5 SEEN /hpf (0-5); Squamous Epithelial Cells - UA 0-5 SEEN /hpf (5-10)
[2024-03-23 07:40] LABS: AST(SGOT) 23 U/L (15-37); Alanine Aminotransfer ALT/SGPT 22 U/L (13-56); Albumin, Serum 2.9 g/dL (3.2-5.0); Alkaline Phosphatase 48 U/L (45-117); Anion Gap 4 (5-15); BUN 16 mg/dL (7-18); BUN/Creat Ratio 15.4 RATIO (10-20); Chloride 104 mmol/L (98-107); Creatinine, Serum 1.04 mg/dL (0.55-1.02); EST Glomerular Filtration Rate 56 mL/min (>60); Est Glom Filt Rate - Afr Amer 68 mL/min (>60); Estimated Creatinine Clearance 58.64 ml/min; Globulin 2.8 g/dL (2.2-4.2); Glucose 81 mg/dL (74-106); Potassium 3.7 mmol/L (3.5-5.1); Protein, Total 5.7 g/dL (6.4-8.2); Sodium Level 143 mmol/L (136-145)
[2024-03-23] MEDS: Bumetanide 2 MG Tablet PO (09:51)
[2024-03-23] MEDS: Potassium Chloride Oral Tablet 20 MEQ PO (09:51)
[2024-03-23] MEDS: Loratadine 10 MG Tablet PO (09:51)
[2024-03-23] MEDS: Aspirin 81 MG TAB.CHEW PO (09:51)
[2024-03-23] MEDS: Magnesium Chloride 64 MG Delay Rel.Tablet 128 MG PO (09:52)
[2024-03-23] MEDS: Magnesium Hydroxide 30 ML UDC 6 ML PO (09:53)
[2024-03-23] MEDS: Senna/Docusate Sodium 1 Tablet 4 TABLET PO ×2 (09:53→22:49)
[2024-03-23] MEDS: Famotidine 20 MG Tablet PO (09:53)
[2024-03-23] MEDS: Enoxaparin 40 MG/0.4 ML Syringe SC (09:53)
[2024-03-23] MEDS: Meropenem 1 GM in 0.9% Normal Saline (100mL MB+) 100 ML IV ×3 (10:01→22:51)
[2024-03-23] MEDS: FLU VACCINE **HIGH DOSE** TV 24-25 180 MCG/0.5 ML SYRINGE IM (10:03)
[2024-03-23] MEDS: traMADol 50 MG Tablet PO ×2 (10:12→23:09)
--- NOTE | 2024-03-23 10:54 | CASEMGMT ---
CESAR COSME Assessment: Face to Face with pt for initial transition planning/care coordination assessment. CESAR COSME introduced self and role at [facility], pt voices understanding and consents to assessment. Pt is A&O x4 and answers all questions appropriately at this time. Pt sitting up in chair with oxygen on. Pt is dyspneic with conversation. Care providers, pharmacy, and demographics verified/updated. Admitting Dx: UTI failed outpt tx Strata Score: 2 PCP:Richie Specialists:raquel Carmen Preferred Pharmacy: [facility]: [facility] Prescription Benefit: yes LNOK: fatou [facility] Arrangements: Pt lives with son in a two story home with 1 step to enter. Pt states that she has aides through [facility] who assist with bathing and dressing. She also has aides through [facility] who assist and do laundry. Pt states she does her own meals. Pt denies concerns at home. Transportation: Pt drives self and denies concerns with transportation. DME:pox, bipap, oxygen through hospice, nebulizer, rollator, shower chair, walker HHC/SNF: Denies hx of Pt states no concerns with going home at time of dc. Pt would like hospice to resume upon dc. ID is consulted for ESBL. Pt states no further concerns/needs. CM to follow. Advised pt to ask CM if any further question/concerns/needs arise, voices understanding. Pt Goal: Home with hospice Plan: Home with hospice, follow ID rec and modify dc plan as needed. Joe GUERRERO CM
--- NOTE | 2024-03-23 13:07 | CT_ITS ---
INDICATION: R flank pain EXAMINATION: CT ABDOMEN AND PELVIS WITH CONTRAST - CT Abdomen And Pelvis W/ Contrast Injection TECHNIQUE: Helically acquired images were obtained of the abdomen and pelvis following IV contrast. A radiation dose optimization technique was used for this scan. IV Contrast dosage and agent: 100 cc Isovue-300 Oral contrast: None. COMPARISON: None. FINDINGS: LOWER CHEST: Lung bases are clear. No cardiomegaly or pericardial effusion. LIVER: No concerning focal mass. GALLBLADDER AND BILIARY TREE: No calcified gallstones. No gallbladder distension or wall edema. No intra- or extrahepatic biliary ductal dilation. PANCREAS: No focal cystic or solid mass. SPLEEN: Normal size without focal cystic or solid mass. ADRENAL GLANDS: No nodules. KIDNEYS AND URETERS: Uniform enhancement. No nephrolithiasis or hydronephrosis. PERITONEUM: No ascites or free air. BOWEL: Normal appendix. No stomach or bowel distension. No focal inflammatory change. LYMPH NODES: No enlarged mesenteric or retroperitoneal lymph nodes. VESSELS: Aorta is non-dilated. URINARY BLADDER: Unremarkable. REPRODUCTIVE ORGANS: Uterus absent. 2 cm midline cyst in the lower vagina wall containing calcification. ABDOMINAL WALL: No discrete abdominal or pelvic wall hernia. BONES: No acute or aggressive osseous abnormality. CT/Abdomen/Pelvis WITH Contrast IMPRESSION: No acute findings in the abdomen or pelvis. 2 cm midline lower vaginal cyst with internal calcification. Possible [place] duct cyst. Electronically Signed: Beny Almeida MD at 18:27 EST ,
--- NOTE | 2024-03-23 13:08 | PCM.CONS.GEN ---
Assessment & Plan Assessment/Plan (1) Urinary tract infection due to ESBL Klebsiella: PLAN: concern for pyelo given R flank pain, will order CT. Cont ayla. Will follow, thank you, d/w high risk case manager HPI Consult Data Date of Consult: 03/23/24 HPI Narrative Reason for Consultation: pyelo HPI Narrative: LESTER PURCELL, is a 68 F with COPD on home O2, CKD, htn, presented 03/22 with several months progressive R flank pain. Reports several courses of abx without improvement. No fever or chills. Pain is moderate, aching. Came to ED, admitted on meropenem, feeling a little better today. Full ROS performed and neg except as noted above. FOR[facility]LY [facility] Medical History Anxiety Rheumatoid arthritis Former smoker Sleep apnea Migraines Former tobacco use Allergic rhinitis CKD (chronic kidney disease), stage II HLD (hyperlipidemia) Chronic GERD Fibromyalgia Osteoporosis Stomach ulcer GERD (gastroesophageal reflux disease) Osteoarthritis Hypothyroidism Myocardial infarct COPD (chronic obstructive pulmonary disease) On home oxygen therapy Stroke/cerebrovascular accident Home Medications ?Medication ?Instructions ?Recorded ?Last Taken ?Type alendronate 70 mg tablet 70 mg PO TH OSTEOPEROSIS 04/22/14 03/17/24 History aspirin 81 mg chewable tablet 81 mg PO DAILY@0800 HEART HEALTH 04/22/14 03/22/24 History estradiol 1 mg tablet 1 mg PO QHS HORMONES 04/22/14 03/21/24 History simvastatin 40 mg tablet 40 mg PO QHS CHOLESTEROL 04/22/14 03/21/24 History tramadol 50 mg tablet 50 mg PO Q8H PRN PAIN 04/22/14 03/22/24 History albuterol sulfate 2.5 mg/3 mL 2.5 mg inhalation Q4H PRN WHEEZING 07/29/23 03/22/24 History (0.083 %) solution for nebulization calcium carbonate (Calcium 500) 1,000 mg PO DAILY SUPPLEMENT 07/29/23 03/22/24 History guaifenesin 600 mg tablet, 1,200 mg PO BID PRN CONGESTION 07/29/23 03/22/24 History extended release 12 hr (Mucus Relief ER) levothyroxine 150 mcg tablet 150 mcg PO DAILY THYROID 07/29/23 03/22/24 History magnesium oxide 500 mg PO DAILY SUPPLEMENT 07/29/23 03/22/24 History melatonin 10 mg tablet 60 mg PO QHS SLEEP 07/29/23 03/21/24 History theophylline 80 mg/15 mL oral 80 mg PO QHS COPD 07/29/23 03/21/24 History solution bumetanide 2 mg tablet 2 mg PO DAILY 03/22/24 03/22/24 History cetirizine 10 mg tablet 10 mg PO DAILY allergies 03/22/24 03/22/24 History cranberry extract 200 mg capsule 400 mg PO DAILY 03/22/24 03/22/24 History famotidine 20 mg tablet 20 mg PO DAILY 03/22/24 03/22/24 History ipratropium 0.5 mg-albuterol 3 mg 3 ml inhalation Q4H SOB 03/22/24 03/22/24 History (2.5 mg base)/3 mL nebulization soln loperamide 2 mg capsule 2 - 4 mg PO Q3H PRN diarrhea 03/22/24 03/21/24 History lorazepam 0.5 mg tablet 0.25 mg PO Q6H anxiety 03/22/24 03/22/24 History magnesium hydroxide 400 mg/5 mL 6 ml PO DAILY constipation 03/22/24 03/22/24 History oral suspension (Milk of Magnesia) morphine concentrate 100 mg/5 mL 10 mg PO Q4H PRN PRN pain 03/22/24 03/22/24 History (20 mg/mL) oral solution potassium chloride 20 mEq 20 meq PO DAILY 03/22/24 03/22/24 History tablet,extended release(part/cryst) (Klor-Con M) sennosides 8.6 mg-docusate sodium 4 tab PO BID 03/22/24 03/22/24 History 50 mg tablet (Senexon-S) Allergy/AdvReac Type Severity Reaction Status Date / Time amoxicillin (Amoxicillin) Allergy Hives Verified 03/22/24 16:32 Family History Mother COPD (chronic obstructive pulmonary disease) Grandmother Diabetes Paternal grandmother Brother Diabetes Father MVA (motor vehicle accident) young from MVA, no medication history otherwise. Surgical History History of nasal septoplasty History of bilateral tubal ligation History of hysterectomy History of tonsillectomy and adenoidectomy Social History (Updated 03/22/24 @ 21:20 by Tiff Rothman) household members: children number of children: 3 Smoking Status: Former smoker how long ago did patient quit smoking: Quit 10 yrs prior, smoked 1-2 ppd since teen until quit. alcohol intake: never substance use type: does not use Physical Exam Const alert, oriented x3 and no apparent distress General Appearance: cooperative HEENT normocephalic and head/scalp atraumatic Eyes PERRL and EOMs intact bilaterally Neck supple and No nodes Resp Auscultation: wheezes Cardio regular rate and regular rhythm GI soft to palpation, non-tender and non-distended GI Narrative: mild R flank pain Extremity General Extremity: edema Skin no rashes or lesions noted Neuro CN's II-XII intact bilaterally Lab / Micro Data Attestation: I reviewed the patient's lab results. 03/23/24 05:20 03/23/24 05:20 Labs: Laboratory Results - last 24 hr 03/22/24 16:52: WBC 10.3, RBC 4.30, Hgb 12.2, Hct 39.3, MCV 91.4, MCH 28.4, MCHC 31.0 L, RDW Std Deviation 44.6 H, RDW Coeff of Vic 13.2, Plt Count 186, MPV 11.2, Immature Gran % (Auto) 0.600, Neut % (Auto) 90.6 H, Lymph % (Auto) 5.5 L, [place] % (Auto) 2.8, Eos % (Auto) 0.3, Baso % (Auto) 0.2, Absolute Neuts (auto) 9.3 H, Absolute Lymphs (auto) 0.56 L, Nucleated RBC % 0, Sodium 141, Potassium 3.9, Chloride 100, Carbon Dioxide 36.0 H, Anion Gap 5, BUN 19 H, Creatinine 1.32 H, Estim Creat Clear Calc 47.63, Est GFR (MDRD) Af Amer 52 L, Est GFR (MDRD) Non-Af 43 L, BUN/Creatinine Ratio 14.4, Glucose 122 H, Lactic Acid 2.2 H*, Calcium 9.6 03/22/24 22:14: Lactic Acid 1.2 03/23/24 05:20: WBC 10.2, RBC 4.07 L, Hgb 11.7 L, Hct 38.0, MCV 93.4, MCH 28.7, MCHC 30.8 L, RDW Std Deviation 44.9 H, RDW Coeff of Vic 13.2, Plt Count 177, MPV 11.9, Immature Gran % (Auto) 0.700, Neut % (Auto) 68.2, Lymph % (Auto) 22.3, [place] % (Auto) 6.4, Eos % (Auto) 2.1, Baso % (Auto) 0.3, Absolute Neuts (auto) 7.0, Absolute Lymphs (auto) 2.28, Nucleated RBC % 0, Sodium 143, Potassium 3.7, Chloride 104, Carbon Dioxide 34.0 H, Anion Gap 4 L, BUN 16, Creatinine 1.04 H, Estim Creat Clear Calc 58.64, Est GFR (MDRD) Af Amer 68, Est GFR (MDRD) Non-Af 56 L, BUN/Creatinine Ratio 15.4, Glucose 81, Calcium 9.0, Total Bilirubin 0.30, AST 23, ALT 22, Alkaline Phosphatase 48, Total Protein 5.7 L, Albumin 2.9 L, Globulin 2.8, Albumin/Globulin Ratio 1.0 03/23/24 05:40: Urine Color Yellow, Urine Clarity Sl. Cloudy, Urine pH 7.0, Ur Specific [place] 1.010, Urine Protein Negative, Urine Glucose (UA) Normal, Urine Ketones Negative, Urine Occult Blood Negative, Urine Nitrite Negative, Urine Bilirubin Negative, Urine Urobilinogen Normal, Ur Leukocyte Esterase 500 H, Urine RBC 0-5 SEEN, Urine WBC 25-50 SEEN, Ur Squamous Epith Cells 0-5 SEEN, Urine Bacteria 1+, Urine Mucus 0 SEEN Imaging Radiology Impression Chest X-Ray 03/22/24 16:45 IMPRESSION: Probable bibasilar scarring. Electronically Signed: Lobo Cannon MD at 17:24 EST ,
[2024-03-23] MEDS: Albuterol 2.5 MG/3 ML VIAL.NEB. INHALATION (13:30)
--- NOTE | 2024-03-23 15:37 | PCM.PN.HOSP ---
Reason for Visit Reason for Visit: Diagnoses Other specified bacterial agents as the cause of diseases classified elsewhere (03/22/24) Urinary tract infection, site not specified (03/22/24) Other specified health status (03/22/24) Subjective Subjective Patient was seen and examined today, infectious diseases saw the patient and has elected to continue her meropenem for now, CT of the abdomen pelvis was ordered. White blood cell count remains normal. Objective Data Objective Data Vital Signs: Vital Signs Temp Pulse Resp BP Pulse Ox O2 Del Method O2 Flow Rate 98.2 F 86 16 123/65 H 100 Nasal Cannula 3 03/23/24 15:00 03/23/24 15:00 03/23/24 15:00 03/23/24 15:00 03/23/24 15:00 03/23/24 15:00 03/23/24 15:00 FiO2 30 03/23/24 02:45 Oxygen Flow Rate (L/min) 3 Oxygen Delivery Method Nasal Cannula Weight: 91.4 kg Body Mass Index (BMI) 33.5 Intake & Output: Intake and Output for Last 24 Hours 03/21/24 03/22/24 03/23/24 23:59 23:59 23:59 Intake Total 140 / 640 2420 / 2420 Output Total 1800 / 1800 Balance 140 / 640 620 / 620 Lab / Micro Data 03/23/24 05:20 03/23/24 05:20 Labs: Laboratory Results - last 24 hr 03/22/24 16:52: WBC 10.3, RBC 4.30, Hgb 12.2, Hct 39.3, MCV 91.4, MCH 28.4, MCHC 31.0 L, RDW Std Deviation 44.6 H, RDW Coeff of Vic 13.2, Plt Count 186, MPV 11.2, Immature Gran % (Auto) 0.600, Neut % (Auto) 90.6 H, Lymph % (Auto) 5.5 L, [place] % (Auto) 2.8, Eos % (Auto) 0.3, Baso % (Auto) 0.2, Absolute Neuts (auto) 9.3 H, Absolute Lymphs (auto) 0.56 L, Nucleated RBC % 0, Sodium 141, Potassium 3.9, Chloride 100, Carbon Dioxide 36.0 H, Anion Gap 5, BUN 19 H, Creatinine 1.32 H, Estim Creat Clear Calc 47.63, Est GFR (MDRD) Af Amer 52 L, Est GFR (MDRD) Non-Af 43 L, BUN/Creatinine Ratio 14.4, Glucose 122 H, Lactic Acid 2.2 H*, Calcium 9.6 03/22/24 22:14: Lactic Acid 1.2 03/23/24 05:20: WBC 10.2, RBC 4.07 L, Hgb 11.7 L, Hct 38.0, MCV 93.4, MCH 28.7, MCHC 30.8 L, RDW Std Deviation 44.9 H, RDW Coeff of Vic 13.2, Plt Count 177, MPV 11.9, Immature Gran % (Auto) 0.700, Neut % (Auto) 68.2, Lymph % (Auto) 22.3, [place] % (Auto) 6.4, Eos % (Auto) 2.1, Baso % (Auto) 0.3, Absolute Neuts (auto) 7.0, Absolute Lymphs (auto) 2.28, Nucleated RBC % 0, Sodium 143, Potassium 3.7, Chloride 104, Carbon Dioxide 34.0 H, Anion Gap 4 L, BUN 16, Creatinine 1.04 H, Estim Creat Clear Calc 58.64, Est GFR (MDRD) Af Amer 68, Est GFR (MDRD) Non-Af 56 L, BUN/Creatinine Ratio 15.4, Glucose 81, Calcium 9.0, Total Bilirubin 0.30, AST 23, ALT 22, Alkaline Phosphatase 48, Total Protein 5.7 L, Albumin 2.9 L, Globulin 2.8, Albumin/Globulin Ratio 1.0 03/23/24 05:40: Urine Color Yellow, Urine Clarity Sl. Cloudy, Urine pH 7.0, Ur Specific [place] 1.010, Urine Protein Negative, Urine Glucose (UA) Normal, Urine Ketones Negative, Urine Occult Blood Negative, Urine Nitrite Negative, Urine Bilirubin Negative, Urine Urobilinogen Normal, Ur Leukocyte Esterase 500 H, Urine RBC 0-5 SEEN, Urine WBC 25-50 SEEN, Ur Squamous Epith Cells 0-5 SEEN, Urine Bacteria 1+, Urine Mucus 0 SEEN Radiography Diagnostic Testing: Radiology Impression Chest X-Ray 03/22/24 16:45 IMPRESSION: Probable bibasilar scarring. Electronically Signed: Lobo Cannon MD at 17:24 EST , Physical Exam Const alert, oriented x3 and no apparent distress Constitutional Narrative: Patient appears older than her stated age General Appearance: cooperative, well kempt and well developed Orientation / Consciousness: awake, oriented to person, oriented to place and oriented to time HEENT normocephalic, head/scalp atraumatic and moist oral mucous membranes Eyes PERRL, EOMs intact bilaterally and conjunctivae normal Neck supple, no JVD, thyroid normal and no carotid bruits General: trachea midline Resp normal respiratory effort, no retractions and no use of accessory muscles Resp Narrative: Breath sounds are diminished bilaterally Auscultation: Negative for rales, rhonchi or wheezes Cardio regular rate, regular rhythm, S1 normal heart sound, S2 normal heart sound, no murmurs, no rub and no gallops GI normal to inspection, nondistended, normoactive bowel sounds, soft to palpation, non-tender and non-distended Extremity no clubbing, cyanosis or edema Skin no rashes or lesions noted General Skin Exam: no breakdown Neuro oriented x3, CN's II-XII intact bilaterally, moves all extremities, no focal motor deficits and no sensory deficits noted Sensorium / Orientation: awake and alert Speech: speech normal Psych affect normal Assessment & Plan Assessment/Plan (1) Urinary tract infection due to ESBL Klebsiella: PLAN: Plan 1. Cystitis with ESBL Klebsiella-patient is currently on meropenem, patient may require outpatient IV antibiotics. #2 chronic hypoxic respiratory failure-patient is currently on 3 L of oxygen via nasal cannula #3 chronic obstructive pulmonary disease-complicates care, management, recovery, and prognosis #4 hypothyroidism-patient is currently on Synthroid Total clinical time spent by myself addressing the patient's medical issues, reviewing all of her data, and collaborating with patient's care team: 35 minutes Charges/Coding Visit Charges Inpatient E&M: 75896 Subs Hosp L2
[2024-03-23] MEDS: MELATONIN 10 MG TABLET 60 MG PO (22:50)
[2024-03-23] MEDS: Atorvastatin Calcium 20 MG Tablet PO (22:50)
[2024-03-23] MEDS: Estradiol 1 MG Tablet PO (22:51)
[2024-03-23] MEDS: 0.9% Saline Lock 10 ML Syringe IV (22:51)
[2024-03-24] VITALS (13 sets, daily range): BP systolic 112–136; BP diastolic 57–75; PULSE 72–96; RESP 12–24; TEMP 36.1–36.6; O2SAT 95–99; BMI 33.6
[2024-03-24] MEDS: morphine (oral solution) 10MG/0.5ML Syringe 10 MG PO ×2 (02:06→20:28)
[2024-03-24] MEDS: Ipratropium/Albuterol Sulfate 3 ML AMPUL.NEB INHALATION ×5 (02:34→20:28)
[2024-03-24] MEDS: LORazepam 0.5 MG Tablet 0.25 MG PO ×3 (06:31→23:16)
[2024-03-24] MEDS: Meropenem 1 GM in 0.9% Normal Saline (100mL MB+) 100 ML IV ×2 (06:31→13:34)
[2024-03-24] MEDS: Levothyroxine 150 MCG Tablet PO (06:31)
[2024-03-24] MEDS: Loratadine 10 MG Tablet PO (07:48)
[2024-03-24] MEDS: Aspirin 81 MG TAB.CHEW PO (07:48)
[2024-03-24] MEDS: Potassium Chloride Oral Tablet 20 MEQ PO (07:48)
[2024-03-24] MEDS: Famotidine 20 MG Tablet PO (07:49)
[2024-03-24] MEDS: Enoxaparin 40 MG/0.4 ML Syringe SC (07:49)
[2024-03-24] MEDS: Magnesium Chloride 64 MG Delay Rel.Tablet 128 MG PO (07:49)
[2024-03-24] MEDS: Bumetanide 2 MG Tablet PO (07:49)
[2024-03-24] MEDS: Senna/Docusate Sodium 1 Tablet 4 TABLET PO (07:50)
[2024-03-24] MEDS: traMADol 50 MG Tablet PO ×2 (08:01→16:08)
[2024-03-24] MEDS: guaiFENesin 1,200 MG Tablet 1200 MG PO (08:02)
[2024-03-24] MEDS: Magnesium Hydroxide 30 ML UDC 6 ML PO (08:02)
--- NOTE | 2024-03-24 14:47 | CASEMGMT ---
Per hospitalist, pt will dc home without any IV atb.
--- NOTE | 2024-03-24 14:56 | PCM.PN.ID ---
Physical Exam Narrative Feeling fine, no fever, no abd pain, no n/v/d. Const alert and no apparent distress General Appearance: cooperative Resp normal air movement and clear to auscultation bilaterally Cardio regular rate and regular rhythm GI soft to palpation, non-tender and non-distended Skin no rashes or lesions noted ID ID: Route of nutrition/ use of supplements: [] Nutritional Intake: [] IV Site: [] Baron Catheter: [] Assessment & Plan Assessment/Plan (1) Urinary tract infection due to ESBL Klebsiella: PLAN: CT showed no evidence of pyelo. No fever. Sx resolved. Ok for discharge off of abx. On ayla while inpatient. Will follow prn d/w Dr. Lovelace
--- NOTE | 2024-03-24 15:34 | CASEMGMT ---
Social Work- SW met with pt to discuss d/c and resumption of hospice services. Pt would like to discuss with son, as she was very upset by how long it took hospice to revoke and allow pt to receive breathing treatments in ED. SW provided education on hospice and pt needs. SW encouraged pt to call son and discuss; SW to follow up. SW followed up. Pt would like resumption of hospice. SW called [facility]. They can meet at 1:30 03/25 at pt home. Hospice staff will call pt son to confirm he is available at that time. SW advised pt of hospice resumption time. Pt states [place] cannot drive. SW called [facility] to set up transport. P/u is scheduled for 6:30PM. Pt notified. Physician and bedside nurse notified. JUS Simmons
--- NOTE | 2024-03-24 16:15 | DCINST_ITS ---
Discharge Instructions Diet Discharge Diet: No restrictions Activity Discharge Activity: Return to Normal Activity Weight Bearing Status: Full weight bearing Follow Up Care Test Results: Test results from this visit will be discussed in further detail at your follow- up appointment, if applicable. Discharge Plan Admission Admit Date/Time: 03/22/24 19:45 Primary Reason for Your Visit: cystitis Attending Provider: Jame Lovelace Primary Care Provider: Shakir Quiroz Consulting Providers: Viktoriya Wesley; Nate Aldridge Instructions Additional Instructions / Restrictions: stay on oxygen at 3 liters per min Discharge Orders/Prescriptions Prescriptions: Continued alendronate 70 MG tablet 70 mg PO TH tramadol 50 MG tablet 50 mg PO Q8H PRN (Reason: PAIN ) simvastatin 40 MG tablet 40 mg PO QHS estradiol 1 MG tablet 1 mg PO QHS aspirin 81 MG tablet,chewable 81 mg PO DAILY@0800 albuterol sulfate 2.5 mg /3 mL (0.083 %) solution for nebulization 2.5 mg inhalation Q4H PRN (Reason: WHEEZING ) levothyroxine 150 mcg tablet 150 mcg PO DAILY magnesium oxide 500 mg magnesium tablet 500 mg PO DAILY guaifenesin [Mucus Relief ER] 600 mg tablet extended release 12hr 1,200 mg PO BID PRN (Reason: CONGESTION ) theophylline 80 mg/15 mL solution 80 mg PO QHS calcium carbonate [Calcium 500] 500 mg calcium (1,250 mg) tablet,chewable 1,000 mg PO DAILY melatonin 10 mg tablet 60 mg PO QHS ipratropium-albuterol 0.5 mg-3 mg(2.5 mg base)/3 mL solution for nebulization 3 ml inhalation Q4H bumetanide 2 mg tablet 2 mg PO DAILY loperamide 2 mg capsule 2 - 4 mg PO Q3H PRN (Reason: diarrhea) cetirizine 10 mg tablet 10 mg PO DAILY sennosides-docusate sodium [Senexon-S] 8.6-50 mg tablet 4 tab PO BID potassium chloride [Klor-Con M20] 20 mEq tablet,ER particles/crystals 20 meq PO DAILY famotidine 20 mg tablet 20 mg PO DAILY lorazepam 0.5 mg tablet 0.25 mg PO Q6H magnesium hydroxide [Milk of Magnesia] 400 mg/5 mL suspension 6 ml PO DAILY morphine concentrate 100 mg/5 mL (20 mg/mL) solution 10 mg PO Q4H PRN PRN (Reason: pain) Patient Comments: pt states she has been taking 0.25ml in the am and if no relief takes another 0.25ml cranberry extract 200 mg capsule 400 mg PO DAILY Rx Instructions: administer with a meal Referrals / Follow Up: Shakir Quiroz DO [Primary Care Provider] - Disposition Disposition (needs filled in before D/C Order can be placed): Hospice in Home
--- NOTE | 2024-03-24 16:19 | PCM.DC.SUM ---
Providers Date of Admission: 03/22/24 Date of Discharge: 03/24/24 Primary Care Physician: Dr. Shakir Quiroz, Consultations 03/22/24 21:10 Consult: Infectious Disease Routine Consulting Provider: Nate Aldridge Reason for Consult: Multidrug resistance UTI EMERGENT Consult: No MD Notified: Yes Date Notified: 03/22/24 Time Notified: 19:47 Method of Notification: Text Reason For Visit: UTI FAILED OUTPATIENT ABX Diagnosis Discharge Diagnosis (1) Urinary tract infection due to ESBL Klebsiella: Status: Acute Code(s): N39.0 - Urinary tract infection, site not specified; B96.89 - Other specified bacterial agents as the cause of diseases classified elsewhere Plan 1. Cystitis with ESBL Klebsiella-patient is currently on meropenem, patient may require outpatient IV antibiotics. #2 chronic hypoxic respiratory failure-patient is currently on 3 L of oxygen via nasal cannula #3 chronic obstructive pulmonary disease-complicates care, management, recovery, and prognosis #4 hypothyroidism-patient is currently on Synthroid Total clinical time spent by myself addressing the patient's medical issues, reviewing all of her data, and collaborating with patient's care team: 35 minutes Medications at Discharge Home Medications alendronate 70 mg tablet 70 mg PO TH OSTEOPEROSIS 04/22/14 aspirin 81 mg chewable tablet 81 mg PO DAILY@0800 HEART HEALTH 04/22/14 estradiol 1 mg tablet 1 mg PO QHS HORMONES 04/22/14 simvastatin 40 mg tablet 40 mg PO QHS CHOLESTEROL 04/22/14 tramadol 50 mg tablet 50 mg PO Q8H PRN PAIN 04/22/14 albuterol sulfate 2.5 mg/3 mL (0.083 %) solution for nebulization 2.5 mg inhalation Q4H PRN WHEEZING 07/29/23 calcium carbonate (Calcium 500) 1,000 mg PO DAILY SUPPLEMENT 07/29/23 guaifenesin 600 mg tablet, extended release 12 hr (Mucus Relief ER) 1,200 mg PO BID PRN CONGESTION 07/29/23 levothyroxine 150 mcg tablet 150 mcg PO DAILY THYROID 07/29/23 magnesium oxide 500 mg PO DAILY SUPPLEMENT 07/29/23 melatonin 10 mg tablet 60 mg PO QHS SLEEP 07/29/23 theophylline 80 mg/15 mL oral solution 80 mg PO QHS COPD 07/29/23 bumetanide 2 mg tablet 2 mg PO DAILY 03/22/24 cetirizine 10 mg tablet 10 mg PO DAILY allergies 03/22/24 cranberry extract 200 mg capsule 400 mg PO DAILY 03/22/24 famotidine 20 mg tablet 20 mg PO DAILY 03/22/24 ipratropium 0.5 mg-albuterol 3 mg (2.5 mg base)/3 mL nebulization soln 3 ml inhalation Q4H SOB 03/22/24 loperamide 2 mg capsule 2 - 4 mg PO Q3H PRN diarrhea 03/22/24 lorazepam 0.5 mg tablet 0.25 mg PO Q6H anxiety 03/22/24 magnesium hydroxide 400 mg/5 mL oral suspension (Milk of Magnesia) 6 ml PO DAILY constipation 03/22/24 morphine concentrate 100 mg/5 mL (20 mg/mL) oral solution 10 mg PO Q4H PRN PRN pain 03/22/24 potassium chloride 20 mEq tablet,extended release(part/cryst) (Klor-Con M) 20 meq PO DAILY 03/22/24 sennosides 8.6 mg-docusate sodium 50 mg tablet (Senexon-S) 4 tab PO BID 03/22/24 Hospital Course Operations None Procedures None Summary of Care Provided Minutes Spent on Discharge: 31 Hospital Course: This 68-year-old white female was seen in the emergency room at [facility] with a chief complaint of frequent urinary tract infections, she was active with hospice at home and urine culture was obtained approximately 4 days prior which was abnormal. She was referred to the emergency room for further treatment. Labs obtained showed a normal white blood cell count, creatinine was elevated at 1.32 and BUN was 19, her recent urine culture was reviewed and it showed ESBL Klebsiella. IV meropenem was administered and patient was admitted to [place] [address], she received several days of IV antibiotics and was seen in consultation by infectious diseases. At the time of discharge on 03/24/2024, infectious diseases did not feel the patient needed additional meropenem as an outpatient at the time of discharge home. On 03/24/2024, patient was seen and examined: On examination she appeared older than her stated age, she does not appear to be in any distress. Vital signs as documented. Skin warm and dry and without overt rashes. Neck without JVD, thyroid appears normal, trachea is midline, neck is supple. Lungs clear, normal air movement was noted. Heart exam notable for regular rhythm, normal sounds and absence of murmurs, rubs or gallops. Abdomen unremarkable and without evidence of organomegaly, masses, or abdominal aortic enlargement, bowel sounds are present in all 4 quadrants, no abdominal tenderness was noted. Extremities nonedematous, no cyanosis was noted, no clubbing was noted. Neuro: Cranial nerves II through XII are grossly intact, no focal motor deficits were noted, sensation to light touch and pinprick is intact, motor exam 5/5 throughout. Psych: Patient is alert and oriented x3, she does not appear anxious or depressed, she does not appear agitated. Patient was discharged home in stable condition on 03/24/2024, it was planned that the patient would resume hospice services as an outpatient Weight / BMI Weight Weight: 91.5 kg Body Mass Index (BMI) 33.6 ABG / Lab / Microbiology Data 03/23/24 05:20 03/23/24 05:20 Radiography Diagnostic Testing: Radiology Impression Abdomen/Pelvis CT 03/23/24 13:07 IMPRESSION: No acute findings in the abdomen or pelvis. 2 cm midline lower vaginal cyst with internal calcification. Possible Zavalla duct cyst. Electronically Signed: Beny Almeida MD at 18:27 EST Reading Location ID and State: [facility] / [place] Tel , Service support , D/C Instructions Discharge Diet: No restrictions Weight Bearing Status: Full weight bearing Meaningful Use Info Meaningful Use Meaningful Use Diagnoses (Choose all that apply): None applicable Ischemic Stroke Statin Dosing Therapy Reference: STATIN DOSE THERAPY REFERENCE: * Patients > 75 years receive moderate or high dose statin therapy. * Patients 75 years or YOUNGER should receive HIGH intensity statin dose unless contraindicated. You will be required to document reason for non-treatment if statin daily dose does not meet guidelines. HIGH DOSE STATIN THERAPY DAILY Atorvastatin > than or = to 40 mg Rosuvastatin > than or = to 20 mg Amlodipine + Atorvastatin > than or = to 2.5/40 mg Ezetimibe + Simvastatin 10/80 mg Simvastatin 80mg Discharge Plan Admission Admit Date/Time: 03/22/24 19:45 Primary Reason for Your Visit: cystitis Attending Provider: Jame Lovelace Primary Care Provider: Shakir Quiroz Consulting Providers: Viktoriya Wesley; Nate Aldridge Instructions Additional Instructions / Restrictions: stay on oxygen at 3 liters per min Discharge Orders/Prescriptions Prescriptions: Continued alendronate 70 MG tablet 70 mg PO TH tramadol 50 MG tablet 50 mg PO Q8H PRN (Reason: PAIN ) simvastatin 40 MG tablet 40 mg PO QHS estradiol 1 MG tablet 1 mg PO QHS aspirin 81 MG tablet,chewable 81 mg PO DAILY@0800 albuterol sulfate 2.5 mg /3 mL (0.083 %) solution for nebulization 2.5 mg inhalation Q4H PRN (Reason: WHEEZING ) levothyroxine 150 mcg tablet 150 mcg PO DAILY magnesium oxide 500 mg magnesium tablet 500 mg PO DAILY guaifenesin [Mucus Relief ER] 600 mg tablet extended release 12hr 1,200 mg PO BID PRN (Reason: CONGESTION ) theophylline 80 mg/15 mL solution 80 mg PO QHS calcium carbonate [Calcium 500] 500 mg calcium (1,250 mg) tablet,chewable 1,000 mg PO DAILY melatonin 10 mg tablet 60 mg PO QHS ipratropium-albuterol 0.5 mg-3 mg(2.5 mg base)/3 mL solution for nebulization 3 ml inhalation Q4H bumetanide 2 mg tablet 2 mg PO DAILY loperamide 2 mg capsule 2 - 4 mg PO Q3H PRN (Reason: diarrhea) cetirizine 10 mg tablet 10 mg PO DAILY sennosides-docusate sodium [Senexon-S] 8.6-50 mg tablet 4 tab PO BID potassium chloride [Klor-Con M20] 20 mEq tablet,ER particles/crystals 20 meq PO DAILY famotidine 20 mg tablet 20 mg PO DAILY lorazepam 0.5 mg tablet 0.25 mg PO Q6H magnesium hydroxide [Milk of Magnesia] 400 mg/5 mL suspension 6 ml PO DAILY morphine concentrate 100 mg/5 mL (20 mg/mL) solution 10 mg PO Q4H PRN PRN (Reason: pain) Patient Comments: pt states she has been taking 0.25ml in the am and if no relief takes another 0.25ml cranberry extract 200 mg capsule 400 mg PO DAILY Rx Instructions: administer with a meal Referrals / Follow Up: Shakir Quiroz DO [Primary Care Provider] - Disposition Disposition (needs filled in before D/C Order can be placed): Hospice in Home Charges/Coding Visit Charges Inpatient E&M: 62880 Disch Hosp >30min
[2024-03-24] MEDS: Estradiol 1 MG Tablet PO (23:16)
[2024-03-24] MEDS: Atorvastatin Calcium 20 MG Tablet PO (23:16)
--- NOTE | 2024-03-24 23:30 | NURSING ---
physicians ambulance here to take patient back home, IV was dc'd on day shift, vitals taken, report given, patient appreciative of care
== END 2024-03-24 23:41 | disposition hospice, inpatient (51) | DRG 133 ==
LOC: ED 16:53 → MS3 20:01
PROVIDERS: Admitting Provider Family Medicine; Emergency Provider Emergency Medicine; PCP Student in an Organized Health Care Education/Training Program; Visit Provider Internal Medicine
DX: J96.21 Acute and chronic respiratory failure with hypoxia (principal); B96.1 Klebsiella pneumoniae [K. pneumoniae] as the cause of diseases classified elsewhere; Z51.5 Encounter for palliative care; Z66 Do not resuscitate; J44.1 Chronic obstructive pulmonary disease with (acute) exacerbation; N18.30 Chronic kidney disease, stage 3 unspecified; I12.9 Hypertensive chronic kidney disease with stage 1 through stage 4 chronic kidney disease, or unspecified chronic kidney disease; E03.9 Hypothyroidism, unspecified; E66.9 Obesity, unspecified; J96.22 Acute and chronic respiratory failure with hypercapnia; J90 Pleural effusion, not elsewhere classified; E78.5 Hyperlipidemia, unspecified; M54.50 Low back pain, unspecified; K21.9 Gastro-esophageal reflux disease without esophagitis; M79.7 Fibromyalgia; M19.90 Unspecified osteoarthritis, unspecified site; I25.2 Old myocardial infarction; J30.9 Allergic rhinitis, unspecified; Z99.81 Dependence on supplemental oxygen; N39.0 Urinary tract infection, site not specified; Z87.891 Personal history of nicotine dependence; Z90.710 Acquired absence of both cervix and uterus; Z79.890 Hormone replacement therapy; Z16.12 Extended spectrum beta lactamase (ESBL) resistance; Z68.32 Body mass index [BMI] 32.0-32.9, adult; Z79.51 Long term (current) use of inhaled steroids; Z79.899 Other long term (current) drug therapy; Z79.891 Long term (current) use of opiate analgesic; Z79.82 Long term (current) use of aspirin; Z79.02 Long term (current) use of antithrombotics/antiplatelets
CPT/HCPCS: 36415; 71046; 74177; 80048; 80053; 81001; 83605; 85025; 90662; 94002; 94003; 94640; 97162; 97166; 97535; 97802; 99285; J2185; Q9967; A4216

== ENCOUNTER 2024-05-19 13:57 | Inpatient (IN) | payer MEDICAID, SELFPAY ==
[2024-05-19] VITALS (22 sets, daily range): BP systolic 110–152; BP diastolic 69–104; PULSE 85–130; RESP 12–36; TEMP 36.3–37.1; O2SAT 93–99; BMI 31.6; BMI 31.1
--- NOTE | 2024-05-19 14:13 | EX.ED.DYSGE1 ---
HPI <GREGORY Michael - Last Filed: 05/19/24 16:36> History of Present Illness Chief Complaint: Shortness of Breath Narrative Narrative: 68-year-old female with PMH of COPD presents with 4 days of worsening shortness of breath. She states she is on hospice for COPD and wears 3 L continuously. She states she has had left-sided chest pain and worsening shortness of breath for the last 4 days. She denies cough but then coughed during the exam. She admits to chills but denies fever. She quit smoking 10 years ago. She does home nebulizer treatments and is on long-term prednisone 20 mg daily. PFSH <GREGORY Michael - Last Filed: 05/19/24 16:36> [facility] Medical History Failure of outpatient treatment Urinary tract infection due to ESBL Klebsiella Anxiety Rheumatoid arthritis Former smoker Sleep apnea Migraines Former tobacco use Allergic rhinitis CKD (chronic kidney disease), stage II HLD (hyperlipidemia) Chronic GERD Fibromyalgia Osteoporosis Stomach ulcer GERD (gastroesophageal reflux disease) Osteoarthritis Hypothyroidism Myocardial infarct COPD (chronic obstructive pulmonary disease) On home oxygen therapy Stroke/cerebrovascular accident Home Medications ?Medication ?Instructions ?Recorded ?Last Taken ?Type alendronate 70 mg tablet 70 mg PO TH OSTEOPEROSIS 04/22/14 05/19/24 History aspirin 81 mg chewable tablet 81 mg PO DAILY@0800 HEART HEALTH 04/22/14 05/19/24 History estradiol 1 mg tablet 1 mg PO QHS HORMONES 04/22/14 05/19/24 History tramadol 50 mg tablet 50 mg PO Q8H PRN PAIN 04/22/14 05/19/24 History albuterol sulfate 2.5 mg/3 mL 2.5 mg inhalation Q4H PRN WHEEZING 07/29/23 05/19/24 History (0.083 %) solution for nebulization calcium carbonate (Calcium 500) 1,000 mg PO DAILY SUPPLEMENT 07/29/23 05/19/24 History guaifenesin 600 mg tablet, 1,200 mg PO BID PRN CONGESTION 07/29/23 05/19/24 History extended release 12 hr (Mucus Relief ER) levothyroxine 150 mcg tablet 150 mcg PO DAILY THYROID 07/29/23 05/19/24 History melatonin 10 mg tablet 60 mg PO QHS SLEEP 07/29/23 05/18/24 History theophylline 80 mg/15 mL oral 80 mg PO QHS COPD 07/29/23 05/18/24 History solution bumetanide 2 mg tablet 2 mg PO DAILY 03/22/24 05/19/24 History cetirizine 10 mg tablet 10 mg PO DAILY allergies 03/22/24 05/19/24 History cranberry extract 200 mg capsule 400 mg PO DAILY 03/22/24 05/18/24 History famotidine 20 mg tablet 20 mg PO DAILY 03/22/24 03/22/24 History ipratropium 0.5 mg-albuterol 3 mg 3 ml inhalation Q4H SOB 03/22/24 05/19/24 History (2.5 mg base)/3 mL nebulization soln lorazepam 0.5 mg tablet 0.25 mg PO Q6H anxiety 03/22/24 05/19/24 History magnesium hydroxide 400 mg/5 mL 6 ml PO DAILY constipation 03/22/24 03/22/24 History oral suspension (Milk of Magnesia) morphine concentrate 100 mg/5 mL 10 mg PO Q4H PRN PRN pain 03/22/24 05/19/24 History (20 mg/mL) oral solution potassium chloride 20 mEq 20 meq PO DAILY 03/22/24 05/18/24 History tablet,extended release(part/cryst) (Klor-Con M) sennosides 8.6 mg-docusate sodium 4 tab PO BID 03/22/24 03/22/24 History 50 mg tablet (Senexon-S) azithromycin 250 mg tablet 250 mg PO UD 05/19/24 05/19/24 History ondansetron HCl 8 mg tablet 8 mg PO Q6H PRN PRN nausea/vomiting 05/19/24 Unknown History prednisone 20 mg tablet 20 mg PO DAILY 05/19/24 05/19/24 History Allergy/AdvReac Type Severity Reaction Status Date / Time amoxicillin (Amoxicillin) Allergy Hives Verified 05/19/24 14:02 Family History Mother COPD (chronic obstructive pulmonary disease) Grandmother Diabetes Paternal grandmother Brother Diabetes Father MVA (motor vehicle accident) young from MVA, no medication history otherwise. Surgical History History of nasal septoplasty History of bilateral tubal ligation History of hysterectomy History of tonsillectomy and adenoidectomy Social History household members: children number of children: 3 Smoking Status: Former smoker how long ago did patient quit smoking: Quit 10 yrs prior, smoked 1-2 ppd since teen until quit. alcohol intake: never substance use type: does not use ROS <GREGORY Michael - Last Filed: 05/19/24 16:36> ROS ED ROS Narrative Constitutional: Negative for fever, chills CVS: Negative for chest pain, syncope. Respiratory: Positive for shortness of breath, cough. GI: Negative for abdominal pain, nausea, vomiting. EXAM <GREGORY Michael - Last Filed: 05/19/24 16:36> Physical Exam Narrative Exam Narrative: CONST: Patient in moderate respiratory distress. EYES: Normal inspection. NECK: Normal inspection. RESP: Severely diminished air movement. CVS: Regular rate and rhythm, no murmur, no gallop. ABD: Soft and nontender, no guarding or rebound, nondistended. SKIN: Color normal, no rash, warm, dry, intact. EXTREMITIES: Normal appearance, no pedal edema. NEURO: Alert and answering questions appropriately. PSYCH: Normal affect. Const Vital Signs: 05/19/24 14:03 05/19/24 14:03 05/19/24 14:06 Temperature 97.9 F 97.9 F Temperature Source Oral Oral Oral Pulse Rate 109 H 109 H Respiratory Rate 15 15 Respiratory Effort Respiratory Depth Respiratory Pattern Blood Pressure 150/89 H 150/89 H Blood Pressure Mean 109 109 Pulse Ox 99 99 Oxygen Delivery Method Nasal Cannula Nasal Cannula Oxygen Flow Rate (L/min) 3 Fraction of Inspired Oxygen (FIO2) 05/19/24 14:24 05/19/24 14:48 05/19/24 15:06 Temperature 98.8 F Temperature Source Oral Pulse Rate 130 H 101 H Respiratory Rate 30 H 22 H Respiratory Effort Short of Breath Labored Respiratory Depth Shallow Respiratory Pattern Tachypnea Blood Pressure 152/104 H Blood Pressure Mean 120 Pulse Ox 97 Oxygen Delivery Method Bi-pap Oxygen Flow Rate (L/min) 3 Fraction of Inspired Oxygen (FIO2) 05/19/24 15:09 05/19/24 16:00 Temperature 98.8 F Temperature Source Oral Pulse Rate 102 H 95 Respiratory Rate 34 H 26 H Respiratory Effort Respiratory Depth Respiratory Pattern Blood Pressure 122/77 H Blood Pressure Mean 92 Pulse Ox 98 96 Oxygen Delivery Method Bi-pap Oxygen Flow Rate (L/min) Fraction of Inspired Oxygen (FIO2) 30 <Dr. Arie Krueger MD - Last Filed: 05/19/24 21:14> Physical Exam Const Vital Signs: 05/19/24 14:03 05/19/24 14:03 05/19/24 14:06 Temperature 97.9 F 97.9 F Temperature Source Oral Oral Oral Pulse Rate 109 H 109 H Respiratory Rate 15 15 Respiratory Effort Respiratory Depth Respiratory Pattern Blood Pressure 150/89 H 150/89 H Blood Pressure Mean 109 109 Pulse Ox 99 99 Oxygen Delivery Method Nasal Cannula Nasal Cannula Oxygen Flow Rate (L/min) 3 Fraction of Inspired Oxygen (FIO2) 05/19/24 14:24 05/19/24 14:48 05/19/24 15:06 Temperature 98.8 F Temperature Source Oral Pulse Rate 130 H 101 H Respiratory Rate 30 H 22 H Respiratory Effort Short of Breath Labored Respiratory Depth Shallow Respiratory Pattern Tachypnea Blood Pressure 152/104 H Blood Pressure Mean 120 Pulse Ox 97 Oxygen Delivery Method Bi-pap Oxygen Flow Rate (L/min) 3 Fraction of Inspired Oxygen (FIO2) 05/19/24 15:09 05/19/24 16:00 Temperature 98.8 F Temperature Source Oral Pulse Rate 102 H 95 Respiratory Rate 34 H 26 H Respiratory Effort Respiratory Depth Respiratory Pattern Blood Pressure 122/77 H Blood Pressure Mean 92 Pulse Ox 98 96 Oxygen Delivery Method Bi-pap Oxygen Flow Rate (L/min) Fraction of Inspired Oxygen (FIO2) 30 Sepsis Attestation <Dr. Arie Krueger MD - Last Filed: 05/19/24 21:14> Sepsis Alert: Yes Sepsis Attestation: Sepsis Ruled Out Date exam was performed: 05/19/24 Time exam was performed: 14:09 MDM <GREGORY Michael - Last Filed: 05/19/24 16:36> [facility] MDM Narrative Medical decision making narrative: 68-year-old female with end-stage COPD on 3 L O2 at baseline presents with several days of worsening dyspnea. She has labored breathing and a dry cough. She is awake and alert and hemodynamically stable on her baseline 3 L. She has significantly diminished air movement and was ordered aerosols and prednisone. Labs show leukocytosis, elevated CO2 due to chronic retention, otherwise unremarkable. EKG is nonischemic and troponin is normal. CXR negative for pneumonia. ABG shows a normal pH and chronic CO2 retention. She was placed on BiPAP due to her labored breathing and tachypnea. Case was discussed with hospitalist for admission. I have personally performed a face to face assessment of the patient and have reviewed the NEHEMIAS Note. I performed a substantive portion of the visit including all aspects of the following. My toney findings include: History is remarkable for shortness of breath is progressively gotten worse. She has history of COPD on 3 L of oxygen by nasal cannula. She does have a cough. The cough is essentially nonproductive. She denies fever or chills. She denies leg pain or discoloration. She denies objective or subjective fever. She denies chest discomfort. Patient does have a history of GERD, COPD, and hypothyroidism. Exam is remarkable for tachycardia, tachypnea. Breathing is labored with use of accessory muscles. There is no retractions. Patient has decreased air movement with increased x-ray phase and high-pitched wheezing throughout. Heart is rapid and regular. There is no murmur, gallop or rub. Abdomen is soft nontender. Lower extremity exam is some edema. There is no tenderness along the distribution of the deep venous system, no leg vein distention, no palpable cords noted. Medical Decision Making differential is pneumothorax, exacerbate COPD, exacerbate COPD due to pneumonia or viral illness. Patient was treated with DuoNeb and albuterol. She will receive steroids. Other additions or changes: Because of her effort to breathe and rate she was started on BiPAP. CODE STATUS was confirmed that she is a full go. Lab Data Labs: Laboratory Results - last 24 hr 05/19/24 14:23 WBC 13.8 H RBC 4.74 Hgb 13.3 Hct 42.9 MCV 90.5 MCH 28.1 MCHC 31.0 L RDW Std Deviation 46.6 H RDW Coeff of Vic 14.1 Plt Count 257 MPV 10.9 Immature Gran % (Auto) 0.400 Neut % (Auto) 93.5 H Lymph % (Auto) 2.9 L [place] % (Auto) 2.8 Eos % (Auto) 0.1 Baso % (Auto) 0.3 Absolute Neuts (auto) 12.9 H Absolute Lymphs (auto) 0.40 L Nucleated RBC % 0 Sodium 137 Potassium 3.5 Chloride 91 L Carbon Dioxide 44.0 H Anion Gap 2 L BUN 14 Creatinine 1.12 H Estim Creat Clear Calc 52.82 Est GFR (MDRD) Af Amer 62 Est GFR (MDRD) Non-Af 51 L BUN/Creatinine Ratio 12.5 Glucose 166 H Calcium 10.7 H Troponin I High Sens 7 ABG Data ABG results: ABG 05/19/24 15:02 Specimen Type ART Sample Site LBRACH pH 7.43 Bicarbonate Actual 44.6 H Total CO2 47 Base Excess 20 H O2 Saturation 95 O2 % 32.0 ABG pCO2 67.5 H* ABG pO2 76 O2 Delivery Device NASAL CAN Radiography Diagnostic Testing: Clinical Impression(s) from Imaging Studies Chest X-Ray 05/19/24 14:41 IMPRESSION: Mild bibasilar atelectasis or scarring. Electronically Signed: Ally Pop MD at 14:55 EST , ED attending interpretation 1 view chest x-ray shows normal heart size, no acute infiltrate. <Dr. Arie Krueger MD - Last Filed: 05/19/24 21:14> [facility] Narrative Medical decision making narrative: I have personally performed a face to face assessment of the patient and have reviewed the NEHEMIAS Note. I performed a substantive portion of the visit including all aspects of the following. My toney findings include: History is remarkable for shortness of breath is progressively gotten worse. She has history of COPD on 3 L of oxygen by nasal cannula. She does have a cough. The cough is essentially nonproductive. She denies fever or chills. She denies leg pain or discoloration. She denies objective or subjective fever. She denies chest discomfort. Patient does have a history of GERD, COPD, and hypothyroidism. Exam is remarkable for tachycardia, tachypnea. Breathing is labored with use of accessory muscles. There is no retractions. Patient has decreased air movement with increased x-ray phase and high-pitched wheezing throughout. Heart is rapid and regular. There is no murmur, gallop or rub. Abdomen is soft nontender. Lower extremity exam is some edema. There is no tenderness along the distribution of the deep venous system, no leg vein distention, no palpable cords noted. Medical Decision Making differential is pneumothorax, exacerbate COPD, exacerbate COPD due to pneumonia or viral illness. Patient was treated with DuoNeb and albuterol. She will receive steroids. Other additions or changes: Because of her effort to breathe and rate she was started on BiPAP. CODE STATUS was confirmed that she is a full go. Lab Data Attestation: I reviewed the patient's lab results. Lab results narrative: White count is elevated at 13.8. There is a shift with 93.5% segs. Electrolyte panel is remarked for glucose of 166 with a elevated CO2 due to chronic CO2 retention due to her COPD requiring continuous oxygen. Creatinine is slightly elevated 1.12 with an estimated GFR 51. Troponin is normal. Labs: Laboratory Results - last 24 hr 05/19/24 14:23 WBC 13.8 H RBC 4.74 Hgb 13.3 Hct 42.9 MCV 90.5 MCH 28.1 MCHC 31.0 L RDW Std Deviation 46.6 H RDW Coeff of Vic 14.1 Plt Count 257 MPV 10.9 Immature Gran % (Auto) 0.400 Neut % (Auto) 93.5 H Lymph % (Auto) 2.9 L [place] % (Auto) 2.8 Eos % (Auto) 0.1 Baso % (Auto) 0.3 Absolute Neuts (auto) 12.9 H Absolute Lymphs (auto) 0.40 L Nucleated RBC % 0 Sodium 137 Potassium 3.5 Chloride 91 L Carbon Dioxide 44.0 H Anion Gap 2 L BUN 14 Creatinine 1.12 H Estim Creat Clear Calc 52.82 Est GFR (MDRD) Af Amer 62 Est GFR (MDRD) Non-Af 51 L BUN/Creatinine Ratio 12.5 Glucose 166 H Calcium 10.7 H Troponin I High Sens 7 ABG Data Attestation: I personally reviewed and interpreted this ABG as follows: Interpretation: ABG reveals normal pH. Patient has evidence of chronic CO2 retention with elevated CO2 and metabolic compensation. pH is 7.42, pCO2 is 67.5, pO2 75.5, bicarb 44.6 with a base excess of 20 and saturation on her baseline oxygen of 94.6 which correlates with the pulse ox. Patient was started on BiPAP because of the rate and effort to breathe. ABG results: ABG 05/19/24 15:02 Specimen Type ART Sample Site LBRACH pH 7.43 Bicarbonate Actual 44.6 H Total CO2 47 Base Excess 20 H O2 Saturation 95 O2 % 32.0 ABG pCO2 67.5 H* ABG pO2 76 O2 Delivery Device NASAL CAN Radiography Chest X-Ray - ED: 1 View, Read by ED Physician (Independent reviewed interpreted by me at 2 :5 2 PM), Unchanged (March 23, 2024), Normal, Heart, Mediastinum, Bony Structures, No Acute Disease and Chronic Changes Diagnostic Testing: Clinical Impression(s) from Imaging Studies Chest X-Ray 05/19/24 14:41 IMPRESSION: Mild bibasilar atelectasis or scarring. Electronically Signed: Ally Pop MD at 14:55 EST , EKG Initial EKG: Attestation: I personally reviewed and interpreted this EKG as follows: Interpretation: Sinus Rhythm (Rate is 98. There is low voltage which is probably due to body habitus. There is artifact due to her labored breathing. CO interval is under 32 ms. QS duration 60 ms. QT duration 342 ms. [place] is normal.) <Dr. Arie Krueger MD - Last Filed: 05/19/24 21:14> Critical Care Time Critical Care Time: Yes Critical care time (excluding procedures): 30-74 minutes (32), Including time spent: (History, physical, documentation, treatment for COPD exacerbation with acute on chronic respiratory failure), Discussing w/Patient &/or Family/Coding Assistant, Discussing w/Consultants, Arranging Admission or Transfer and Performing Direct Patient Care at Bedside Discharge Plan Dx/Rx/DC Orders Clinical Impression: Acute on chronic respiratory failure with hypoxia and hypercapnia, COPD, severe, Acute bronchospasm, Sinus tachycardia seen on ecological modeler Disposition Disposition: Acute Care Hospital [facility] Discharge Date/Time: 05/19/24 19:09
[2024-05-19] MEDS: Ipratropium/Albuterol Sulfate 3 ML AMPUL.NEB INHALATION ×3 (14:20→19:18)
[2024-05-19] MEDS: MethylPREDNISolone 125 MG/2 ML Vial IV (14:31)
[2024-05-19 14:33] LABS: Absolute Neutrophil Count 12.9 X10^3/uL (2.0-7.7); Basophil# 0.04 X10^3/uL; Basophil% 0.3 % (0-1); Eosinophil# 0.02 X10^3/uL; Eosinophils% 0.1 % (0-5); Hematocrit 42.9 % (37-47); Hemoglobin 13.3 g/dL (12.0-15.0); Lymphocyte % 2.9 % (19-41); Mean Corpuscular Hgb 28.1 pg (27.0-32.0); Mean Corpuscular Volume 90.5 fL (81-99); Mean Platelet Vol. 10.9 fl (6.2-12.0); Monocyte# 0.38 X10^3/uL; Monocyte% 2.8 % (0-10); NRBC Flagged by Analyzer 0 % (0-5); Neutrophil # 12.86 X10^3/uL (2.7-7.7); Neutrophil % 93.5 % (47-70); POSITIVE DIFFERENTIAL YES; Platelet Count 257 K/mm3 (150-450); RBC Distribution Width CV 14.1 % (11.6-14.6); RBC Distribution Width SD 46.6 fl (35.1-43.9); Red Blood Count 4.74 M/mm3 (4.2-5.4); White Blood Count 13.8 K/mm3 (4.4-11.0)
--- NOTE | 2024-05-19 14:41 | RAD_ITS ---
HISTORY: dyspnea. TECHNIQUE: XR Chest 1 View. COMPARISON: 03/22/2024. FINDINGS: CARDIOMEDIASTINAL BORDERS: Cardiac silhouette within normal limits in size. Mediastinal contour unremarkable with calcification of the aortic knob. LUNGS: Mild hyperinflation with chronic left greater than right linear bibasilar opacities. PLEURA: No pleural effusion or pneumothorax seen. OSSEOUS STRUCTURES: Small bone islands in the proximal right humerus. RAD/Chest 1 View (Portable) IMPRESSION: Mild bibasilar atelectasis or scarring. Electronically Signed: Ally Pop MD at 14:55 EST ,
[2024-05-19 15:04] LABS: Anion Gap 2 (5-15); BUN 14 mg/dL (7-18); BUN/Creat Ratio 12.5 RATIO (10-20); Calcium,Total 10.7 mg/dL (8.5-10.1); Chloride 91 mmol/L (98-107); Creatinine, Serum 1.12 mg/dL (0.55-1.02); EST Glomerular Filtration Rate 51 mL/min (>60); Est Glom Filt Rate - Afr Amer 62 mL/min (>60); Estimated Creatinine Clearance 52.82 ml/min; Glucose 166 mg/dL (74-106); Potassium 3.5 mmol/L (3.5-5.1); Sodium Level 137 mmol/L (136-145); Troponin-I HS 7 pg/mL (3.0-54.0)
--- NOTE | 2024-05-19 15:13 | EKG12_ITS ---
Test Reason : SOB Blood Pressure : */* mmHG Vent. Rate : 98 BPM Atrial Rate : 98 BPM P-R Int : 136 ms QRS Dur : 66 ms QT Int : 342 ms P-R-T Axes : 86 33 55 degrees QTcB Int : 436 ms Normal sinus rhythm Low voltage QRS Borderline ECG Baseline artifact Confirmed by Nagi Queen ([id number]), pictures editor RICARDA BROWN ([id number]) on 05/20/2024 9:36:20 AM Referred By: Confirmed By: Nagi Queen
--- NOTE | 2024-05-19 16:23 | PCM.HP.STD ---
HPI - General General Date of Admission: 05/19/24 Date of Service: 05/19/24 Chief Complaint: Dyspnea, wheezing. HPI Narrative The patient is a 68 y/o F w/ PMHx: CKD stage II per GFR trending, HTN, HLD, Obesity, GERD w/ Hx gastric ulcer, Hypothyroidism, COPD w/ Allergic Rhinits w/ Chronic Hypoxic and Hypercabic Respiratory Failure (3L NC) reported as severe per Pulmonary Dr. Palacios (FEV1 21%) on maximal therapy with chronic dyspnea, [facility], initiated on chronic azithromycin, Former tobacco use who presents to the [facility] ED on 05/19/24 with history of 4 days of progressively worsening dyspnea, worse with any exertion with left-sided pleuritic chest discomfort with coughing and subjective chills but no recent fevers on chronic 3 L nasal cannula following with hospice for severe COPD with home nebulizer treatments which she reports have not been significantly effective prompting eventual ED evaluation to be cautious. She notes she has had mildly productive cough and subjective chills but no fevers. She denies any recent ill contacts. In the ED patient was noted to be tachypneic, tachycardic, using accessory muscles with labored breathing with significantly decreased air movement and high-pitched wheezing diffusely prompting transition to BiPAP therapy in the ED. Workup in the ED included T97.9, heart rate 109, BP 150/89, respiratory rate 15, 99% on 3 L nasal cannula eventually transition to BiPAP with 30% FiO2 with most recent repeat vital signs T98.8, heart rate 95, BP 122/77, respiratory rate 26, 96% on BiPAP, CBC with WBC 13.8, hemoglobin 13.3, platelet 257 with left shift and lymphopenia, BMP with chloride 91, carbon oxide 44, BUN/creatinine 14/1.12, GFR 51, glucose 166, calcium 10.7, troponin 7, chest x-ray with mild basilar atelectasis versus scarring, rapid SARS COVID/influenza/RSV PCR negative. In the ED patient ministered DuoNeb therapy x 2, Solu-Medrol 125 mg IV x 1, Levaquin 500 mg IV x 1. [facility] Medical History Failure of outpatient treatment Urinary tract infection due to ESBL Klebsiella Anxiety Rheumatoid arthritis Former smoker Sleep apnea Migraines Former tobacco use Allergic rhinitis CKD (chronic kidney disease), stage II HLD (hyperlipidemia) Chronic GERD Fibromyalgia Osteoporosis Stomach ulcer GERD (gastroesophageal reflux disease) Osteoarthritis Hypothyroidism Myocardial infarct COPD (chronic obstructive pulmonary disease) On home oxygen therapy Stroke/cerebrovascular accident Home Medications ?Medication ?Instructions ?Recorded ?Last Taken ?Type alendronate 70 mg tablet 70 mg PO TH OSTEOPEROSIS 04/22/14 05/19/24 History aspirin 81 mg chewable tablet 81 mg PO DAILY@0800 HEART HEALTH 04/22/14 05/19/24 History estradiol 1 mg tablet 1 mg PO QHS HORMONES 04/22/14 05/19/24 History tramadol 50 mg tablet 50 mg PO Q8H PRN PAIN 04/22/14 05/19/24 History albuterol sulfate 2.5 mg/3 mL 2.5 mg inhalation Q4H PRN WHEEZING 07/29/23 05/19/24 History (0.083 %) solution for nebulization calcium carbonate (Calcium 500) 1,000 mg PO DAILY SUPPLEMENT 07/29/23 05/19/24 History guaifenesin 600 mg tablet, 1,200 mg PO BID PRN CONGESTION 07/29/23 05/19/24 History extended release 12 hr (Mucus Relief ER) levothyroxine 150 mcg tablet 150 mcg PO DAILY THYROID 07/29/23 05/19/24 History melatonin 10 mg tablet 60 mg PO QHS SLEEP 07/29/23 05/18/24 History theophylline 80 mg/15 mL oral 80 mg PO QHS COPD 07/29/23 05/18/24 History solution bumetanide 2 mg tablet 2 mg PO DAILY 03/22/24 05/19/24 History cetirizine 10 mg tablet 10 mg PO DAILY allergies 03/22/24 05/19/24 History cranberry extract 200 mg capsule 400 mg PO DAILY 03/22/24 05/18/24 History famotidine 20 mg tablet 20 mg PO DAILY 03/22/24 03/22/24 History ipratropium 0.5 mg-albuterol 3 mg 3 ml inhalation Q4H SOB 03/22/24 05/19/24 History (2.5 mg base)/3 mL nebulization soln lorazepam 0.5 mg tablet 0.25 mg PO Q6H anxiety 03/22/24 05/19/24 History magnesium hydroxide 400 mg/5 mL 6 ml PO DAILY constipation 03/22/24 03/22/24 History oral suspension (Milk of Magnesia) morphine concentrate 100 mg/5 mL 10 mg PO Q4H PRN PRN pain 03/22/24 05/19/24 History (20 mg/mL) oral solution potassium chloride 20 mEq 20 meq PO DAILY 03/22/24 05/18/24 History tablet,extended release(part/cryst) (Klor-Con M) sennosides 8.6 mg-docusate sodium 4 tab PO BID 03/22/24 03/22/24 History 50 mg tablet (Senexon-S) azithromycin 250 mg tablet 250 mg PO UD 05/19/24 05/19/24 History ondansetron HCl 8 mg tablet 8 mg PO Q6H PRN PRN nausea/vomiting 05/19/24 Unknown History prednisone 20 mg tablet 20 mg PO DAILY 05/19/24 05/19/24 History Allergy/AdvReac Type Severity Reaction Status Date / Time amoxicillin (Amoxicillin) Allergy Hives Verified 05/19/24 14:02 Family History Mother COPD (chronic obstructive pulmonary disease) Grandmother Diabetes Paternal grandmother Brother Diabetes Father MVA (motor vehicle accident) young from MVA, no medication history otherwise. Surgical History History of nasal septoplasty History of bilateral tubal ligation History of hysterectomy History of tonsillectomy and adenoidectomy Social History household members: children number of children: 3 Smoking Status: Former smoker how long ago did patient quit smoking: Quit 10 yrs prior, smoked 1-2 ppd since teen until quit. alcohol intake: never substance use type: does not use ROS ROS Narrative Admission Review of Systems: CONSTITUTIONAL: No weight loss, fever, + subjective chills, weakness or fatigue. HEENT: Eyes: No visual loss, blurred vision, double vision or yellow sclerae. Ears, Nose, Throat: No hearing loss, sneezing, congestion, runny nose or sore throat. SKIN: No rash or itching, lesions, wounds except + BL LE venous stasis skin changes, occasional stage ecchymoses, abrasion. CARDIOVASCULAR: + Edema. + Pleuritic chest discomfort with coughing. No palpitations, orthopnea, syncopal events. RESPIRATORY: + Increased dyspnea, worse with exertion, occasional cough with occasional productive sputum, wheezing. No hemoptysis. GASTROINTESTINAL: + Decreased appetite. No nausea, vomiting or diarrhea, abdominal pain, melena, BRBPR. GENITOURINARY: No dysuria, frequency, urgency or retention. NEUROLOGICAL: No headache, dizziness, syncope, paralysis, ataxia, numbness or tingling in the extremities, focal weakness, change in bowel or bladder control, seizure. MUSCULOSKELETAL: + muscle, back pain, joint pain or stiffness. HEMATOLOGIC: No anemia, bleeding or bruising. LYMPHATICS: No enlarged nodes. No history of splenectomy. PSYCHIATRIC: No history of depression or anxiety. ENDOCRINOLOGIC: + Reports of sweating, cold or heat intolerance. No polyuria or polydipsia. ALLERGIES: + Hx Hives and rhinitis. Vital Signs Vital Signs Vital Signs: 05/19/24 14:03 05/19/24 14:03 05/19/24 14:06 Temperature 97.9 F 97.9 F Temperature Source Oral Oral Oral Pulse Rate 109 H 109 H Respiratory Rate 15 15 Respiratory Effort Respiratory Depth Respiratory Pattern Blood Pressure 150/89 H 150/89 H Blood Pressure Mean 109 109 Pulse Ox 99 99 Oxygen Delivery Method Nasal Cannula Nasal Cannula Oxygen Flow Rate (L/min) 3 Fraction of Inspired Oxygen (FIO2) 05/19/24 14:24 05/19/24 14:48 05/19/24 15:06 Temperature 98.8 F Temperature Source Oral Pulse Rate 130 H 101 H Respiratory Rate 30 H 22 H Respiratory Effort Short of Breath Labored Respiratory Depth Shallow Respiratory Pattern Tachypnea Blood Pressure 152/104 H Blood Pressure Mean 120 Pulse Ox 97 Oxygen Delivery Method Bi-pap Oxygen Flow Rate (L/min) 3 Fraction of Inspired Oxygen (FIO2) 05/19/24 15:09 05/19/24 16:00 Temperature 98.8 F Temperature Source Oral Pulse Rate 102 H 95 Respiratory Rate 34 H 26 H Respiratory Effort Respiratory Depth Respiratory Pattern Blood Pressure 122/77 H Blood Pressure Mean 92 Pulse Ox 98 96 Oxygen Delivery Method Bi-pap Oxygen Flow Rate (L/min) Fraction of Inspired Oxygen (FIO2) 30 Weight Weight: 189 lb 13.088 oz Body Mass Index (BMI) 31.6 Physical Exam Narrative Physical Examination: General: Awake, alert, oriented x 3 and cooperative, seated upright in the ED bed, still increased work of breathing and some accessory muscle usage with BiPAP in place, fatigued, notes she is feeling improved since initial ED arrival. Skin: Normal color, normal turgor, no icterus, no cyanosis except occasional abrasion, ecchymoses, bilateral lower extremity venous stasis skin changes. HEENT: AT/NC, EOMI, PERRLA, mildly dry MM, BiPAP in place, difficult to discern bruits and JVD given thickened neck and referred sounds from BiPAP. Lungs: Severely diminished, greater bases, diffuse expiratory wheezing, still mildly tachypneic, tachycardic, accessory muscle usage with BiPAP in place, distress is lasting, no rales or rhonchi. Heart: Tachycardic with regular rhythm; no gallop, rub audible. Abdomen: Soft, obese, NTTP, ND, distant normal BS, no appreciated HSM. Extremities: No cyanosis, no clubbing, mild pedal to distal sales edema, venous stasis skin changes. Neurological: Patient awake, alert, oriented as noted, cognitive function intact; pupils equally reactive to light and accommodation, cranial nerves gross normal, moving all 4 extremities, no focal deficits, strength severely globally decreased. Psychiatric: Affect appears fatigued, respiratory distress is lessening, no acute evidence of depressive or anxiety feelings. Results Lab / Micro Data 05/19/24 14:23 05/19/24 14:23 Labs: Laboratory Results - last 24 hr 05/19/24 14:23: WBC 13.8 H, RBC 4.74, Hgb 13.3, Hct 42.9, MCV 90.5, MCH 28.1, MCHC 31.0 L, RDW Std Deviation 46.6 H, RDW Coeff of Vic 14.1, Plt Count 257, MPV 10.9, Immature Gran % (Auto) 0.400, Neut % (Auto) 93.5 H, Lymph % (Auto) 2.9 L, [place] % (Auto) 2.8, Eos % (Auto) 0.1, Baso % (Auto) 0.3, Absolute Neuts (auto) 12.9 H, Absolute Lymphs (auto) 0.40 L, Nucleated RBC % 0, Sodium 137, Potassium 3.5, Chloride 91 L, Carbon Dioxide 44.0 H, Anion Gap 2 L, BUN 14, Creatinine 1.12 H, Estim Creat Clear Calc 52.82, Est GFR (MDRD) Af Amer 62, Est GFR (MDRD) Non-Af 51 L, BUN/Creatinine Ratio 12.5, Glucose 166 H, Calcium 10.7 H, Troponin I High Sens 7 Micro: Microbiology 05/19/24 14:34 Mucosa - Nose SARS-CoV-2, Influenza & RSV (PCR) - Final Imaging Radiology Impression Chest X-Ray 05/19/24 14:41 IMPRESSION: Mild bibasilar atelectasis or scarring. Electronically Signed: Ally Pop MD at 14:55 EST , Assessment & Plan Assessment/Plan (1) COPD exacerbation: PLAN: Plan The patient is a 68 y/o F w/ PMHx: CKD stage II per GFR trending, HTN, HLD, Obesity, GERD w/ Hx gastric ulcer, Hypothyroidism, COPD w/ Allergic Rhinits w/ Chronic Hypoxic and Hypercabic Respiratory Failure (3L NC) reported as severe per Pulmonary Dr. Palacios (FEV1 21%) on maximal therapy with chronic dyspnea, [facility] but declined further evaluation, initiated on chronic azithromycin, Former tobacco use who presents to the [facility] ED on 05/19/24 with history of 4 days of progressively worsening dyspnea, worse with any exertion with left-sided pleuritic chest discomfort with coughing and subjective chills but no recent fevers on chronic 3 L nasal cannula following with hospice for severe COPD with home nebulizer treatments which she reports have not been significantly effective prompting eventual ED evaluation to be cautious. #1. Acute Respiratory Distress (tachypneic, tachycardic, using accessory muscles with labored breathing with significantly decreased air movement and high-pitched wheezing diffusely requiring BIPAP) on Chronic Hypoxic and Hypercarbic Respiratory Failure secondary to Acute on Chronic COPD exacerbation: Will admit to ICU per discussion with ED physician given concerns, continue BIPAP until clinically improving with requested repeat ABG in 1-2 hours with then wean to home supplemental oxygen as able, ATC duonebs, PRN albuterol, continue home theophylline regimen,, continue chronic morphine/Ativan as long as clinically appropriate for dyspnea symptom per hospice but cautiously given full CODE STATUS, IV methylprednisolone, HOB, IS parameters, will obtain sputum Cx, respiratory viral panel, procalcitonin, will hold on further continuation of abx therapy but low threshold to add if appropriate. #2. CKD stage III, unclear subtype per prior GFR trend, previous trending had been stage II but has been for several months within stage III per GFR now that is potentially new baseline: Admission BUN/creatinine 14.12, GFR 51, more recent baseline creatinine has been 1.0-1.3, continue to trend. #3. GERD w/ Hx gastric ulcer: Will continue patient on famotidine. #4. Hypertension: Continue home regimen including bumetanide, PRN hydralazine. #5. Chronic insomnia: Will continue patient home melatonin, significantly elevated usage level of note. #6. Chronic bilateral lower extremity lymphedema: Continue cautiously as noted patient bumetanide, will place neck Alton wraps with elevation. #7. Hypothyroidism: Will continue patient on levothyroxine regimen. #8. Former tobacco use: Encourage continued tobacco cessation. #9. Hyperlipidemia: Continue home statin regimen. #10. Obesity: Weight loss and lifestyle changes encouraged. #11. Allergic rhinitis: We will continue patient home cetirizine. #12. DVT prophylaxis: Lovenox. #13. CODE status: Patient ERIKA is her son she notes and living will is not currently in place. Discussed CODE status at length including difference between FULL code, DNR-CCA and DNR-CC status. Following discussions about the differences in these status, requested change from this prior status to full code. Advanced Care Planning Face to Face Time: 16 minutes. Charges/Coding Visit Charges Inpatient E&M: 53321 Init Hosp L3 Procedures Hospitalists Procedures: 18285 Advncd Care Plan 30 Min
[2024-05-19] MEDS: levoFLOXacin IV 500 MG/100 ML BAG 100 MG IV (16:59)
--- NOTE | 2024-05-19 17:50 | CPS ---
pt is refusing at this time. Per Dr Wesley it is ok to make order as PRN and obtained as needed. order changed
[2024-05-19 18:01] LABS: Blood Gas Specimen Type ART; SITE LBRACH
[2024-05-19 18:02] LABS: O2 Delivery Device NASAL CAN
[2024-05-19 18:03] LABS: Base Excess 20 mmol/L (-2 to +2); Bicarbonate 44.6 mmol/L (22-26); PO2 76 mmHG (75-100); SO2 95 % (95-99); Total Carbon Dioxide 47 mmol/L; pCO2 67.5 mmHg (35-45); pH 7.43 (7.35-7.45)
[2024-05-19] MEDS: LORazepam 0.5 MG Tablet 0.25 MG PO ×2 (18:09→21:55)
--- NOTE | 2024-05-19 18:20 | NURSING ---
Attempted to give pt Medications at this time, pt took ativan and upon taking a sip of water to swallow pills pt started to cough, respers increased to 36, pt placed back on Bipap
[2024-05-19 19:23] LABS: Procalcitonin 0.08 ng/mL (0.00-0.09)
[2024-05-19] MEDS: MELATONIN 10 MG TABLET PO (21:55)
[2024-05-19] MEDS: Enoxaparin 40 MG/0.4 ML Syringe SC (21:56)
[2024-05-19] MEDS: Senna/Docusate Sodium 1 Tablet 4 TABLET PO (21:56)
[2024-05-19] MEDS: Estradiol 1 MG Tablet PO (21:57)
[2024-05-19] MEDS: 0.9% Saline Lock 10 ML Syringe IV (22:03)
[2024-05-20] VITALS (25 sets, daily range): BP systolic 109–153; BP diastolic 68–90; PULSE 72–108; RESP 12–45; TEMP 35.8–37.1; O2SAT 80–102; BMI 31.7
[2024-05-20] MEDS: LORazepam 0.5 MG Tablet 0.25 MG PO ×3 (05:17→17:41)
[2024-05-20 05:33] LABS: Absolute Lymphocyte Count 0.49 X10^3/uL (0.83-4.51); Basophil# 0.01 X10^3/uL; Basophil% 0.1 % (0-1); Hematocrit 38.9 % (37-47); Hemoglobin 11.9 g/dL (12.0-15.0); Lymphocyte # 0.49 X10^3/ul (0.83-4.51); Lymphocyte % 4.2 % (19-41); Mean Corp Hgb Conc 30.6 g/dL (32-36); Mean Corpuscular Hgb 27.7 pg (27.0-32.0); Mean Corpuscular Volume 90.5 fL (81-99); Mean Platelet Vol. 10.8 fl (6.2-12.0); Monocyte# 0.14 X10^3/uL; Monocyte% 1.2 % (0-10); NRBC Flagged by Analyzer 0 % (0-5); Neutrophil # 10.97 X10^3/uL (2.7-7.7); POSITIVE DIFFERENTIAL YES; Platelet Count 254 K/mm3 (150-450); RBC Distribution Width CV 13.8 % (11.6-14.6); RBC Distribution Width SD 45.5 fl (35.1-43.9); White Blood Count 11.7 K/mm3 (4.4-11.0)
[2024-05-20 05:52] LABS: ALB/GLOB Ratio 0.8 RATIO (0.9-2.4); AST(SGOT) 13 U/L (15-37); Alanine Aminotransfer ALT/SGPT 13 U/L (13-56); Albumin, Serum 2.9 g/dL (3.2-5.0); Alkaline Phosphatase 57 U/L (45-117); Anion Gap 5 (5-15); BUN 15 mg/dL (7-18); BUN/Creat Ratio 14.3 RATIO (10-20); Calcium,Total 10.1 mg/dL (8.5-10.1); Chloride 95 mmol/L (98-107); Creatinine, Serum 1.05 mg/dL (0.55-1.02); EST Glomerular Filtration Rate 55 mL/min (>60); Est Glom Filt Rate - Afr Amer 67 mL/min (>60); Estimated Creatinine Clearance 56.47 ml/min; Globulin 3.8 g/dL (2.2-4.2); Glucose 140 mg/dL (74-106); Potassium 3.6 mmol/L (3.5-5.1); Protein, Total 6.7 g/dL (6.4-8.2); Sodium Level 139 mmol/L (136-145)
--- NOTE | 2024-05-20 07:12 | PN.HOSP_ITS ---
Reason for Visit Reason for Visit: Diagnoses Chronic obstructive pulmonary disease with (acute) exacerbation (05/19/24) Subjective Subjective Patient is a 68-year-old lady who presented with 4-day history of progressive dyspnea, pleuritic chest discomfort as well as subjective fevers but no chills. Checks x-ray demonstrated mild bibasilar atelectasis versus scarring. Patient was found to be hypoxic and in respiratory distress and assessment of acute hypoxic respiratory failure made placed on BiPAP admitted to the intensive care unit for further management Objective Data Objective Data Vital Signs: Vital Signs Temp Pulse Resp BP Pulse Ox O2 Del Method O2 Flow Rate 98.7 F 92 20 H 141/90 H 97 Nasal Cannula 3 05/20/24 00:00 05/20/24 07:00 05/20/24 07:00 05/20/24 07:00 05/20/24 07:00 05/20/24 07:00 05/20/24 07:00 FiO2 30 05/20/24 05:00 Oxygen Flow Rate (L/min) 3 Oxygen Delivery Method Nasal Cannula Weight: 86.5 kg Body Mass Index (BMI) 31.7 Intake & Output: Intake and Output for Last 24 Hours 05/18/24 05/19/24 05/20/24 23:59 23:59 23:59 Intake Total 220 / 220 360 / 360 Output Total 125 / 125 Balance 220 / 220 235 / 235 Lab / Micro Data 05/20/24 05:20 05/20/24 05:20 Labs: Laboratory Results - last 24 hr 05/19/24 14:23: WBC 13.8 H, RBC 4.74, Hgb 13.3, Hct 42.9, MCV 90.5, MCH 28.1, M CHC 31.0 L, RDW Std Deviation 46.6 H, RDW Coeff of Vic 14.1, Plt Count 257, MPV 10.9, Immature Gran % (Auto) 0.400, Neut % (Auto) 93.5 H, Lymph % (Auto) 2.9 L, [place] % (Auto) 2.8, Eos % (Auto) 0.1, Baso % (Auto) 0.3, Absolute Neuts (auto) 12.9 H, Absolute Lymphs (auto) 0.40 L, Nucleated RBC % 0, Sodium 137, Potassium 3.5, Chloride 91 L, Carbon Dioxide 44.0 H, Anion Gap 2 L, BUN 14, Creatinine 1.12 H, Estim Creat Clear Calc 52.82, Est GFR (MDRD) Af Amer 62, Est GFR (MDRD) Non-Af 51 L, BUN/Creatinine Ratio 12.5, Glucose 166 H, Calcium 10.7 H, Troponin I High Sens 7 05/19/24 18:38: Procalcitonin 0.08 05/20/24 05:20: WBC 11.7 H, RBC 4.30, Hgb 11.9 L, Hct 38.9, MCV 90.5, MCH 27.7, MCHC 30.6 L, RDW Std Deviation 45.5 H, RDW Coeff of Vic 13.8, Plt Count 254, MPV 10.8, Immature Gran % (Auto) 0.500, Neut % (Auto) 94.0 H, Lymph % (Auto) 4.2 L, [place] % (Auto) 1.2, Eos % (Auto) 0.0, Baso % (Auto) 0.1, Absolute Neuts (auto) 11.0 H, Absolute Lymphs (auto) 0.49 L, Nucleated RBC % 0, Sodium 139, Potassium 3.6, Chloride 95 L, Carbon Dioxide 39.0 H, Anion Gap 5, BUN 15, Creatinine 1.05 H, Estim Creat Clear Calc 56.47, Est GFR (MDRD) Af Amer 67, Est GFR (MDRD) Non- Af 55 L, BUN/Creatinine Ratio 14.3, Glucose 140 H, Calcium 10.1, Total Bilirubin 0.50, AST 13 L, ALT 13, Alkaline Phosphatase 57, Total Protein 6.7, Albumin 2.9 L, Globulin 3.8, Albumin/Globulin Ratio 0.8 L Micro: Microbiology 05/19/24 17:20 Mucosa - Nasopharyngeal Respiratory Panel (PCR) - Final 05/19/24 17:45 Nasal Secretion MRSA (PCR) - Final 05/19/24 14:34 Mucosa - Nose SARS-CoV-2, Influenza & RSV (PCR) - Final ABG Data ABG results: ABG 05/19/24 15:02 Specimen Type ART Sample Site LBRACH pH 7.43 Bicarbonate Actual 44.6 H Total CO2 47 Base Excess 20 H O2 Saturation 95 O2 % 32.0 ABG pCO2 67.5 H* ABG pO2 76 O2 Delivery Device NASAL CAN Radiography Diagnostic Testing: Radiology Impression Chest X-Ray 05/19/24 14:41 IMPRESSION: Mild bibasilar atelectasis or scarring. Electronically Signed: Ally Pop MD at 14:55 EST , Physical Exam Narrative GENERAL: Patient is on BiPAP HEENT: Atraumatic; normocephalic EYES; Anicteric, Normal Conjunctiva NECK; supple, normal thyroid, RESPIRATORY: Diminished to auscultation CARDIOVASCULAR: Regular S1 S2, GI: soft, normoactive bowel sounds, : No Renal angle tenderness; EXTREMITIES: No edema, no clubbing, MUSCULOSKELETAL: no muscle wasting NEURO: Awake; no lateralizing signs. SKIN: No Rash PSYCH; Flat affect Assessment & Plan Assessment/Plan (1) COPD exacerbation: PLAN: Plan Patient is a 68-year-old lady who presented with 4-day history of progressive dyspnea, pleuritic chest discomfort as well as subjective fevers but no chills. Checks x-ray demonstrated mild bibasilar atelectasis versus scarring. Patient was found to be hypoxic and in respiratory distress and assessment of acute hypoxic respiratory failure made placed on BiPAP admitted to the intensive care unit for further management 1. Acute hypoxic and hypercapnic respiratory failure Secondary to COPD with acute exacerbation, Patient started on bronchodilator treatment, systemic steroid as well as antibiotic therapy. Patient placed on was placed on noninvasive ventilation BiPAP viral respiratory panel including COVID sent 2. Chronic kidney disease stage III ? Kidney function at baseline 3. Hypertension ? Blood pressure controlled, home medications continued with dose adjustment as needed 4. Hypothyroidism ? Patient is on levothyroxine home dose continued 5. Chronic hypoxic respiratory failure ? Patient is on base line home oxygen 3 L at rest 6. History of gastric ulcer ? Patient is on famotidine 7. Class I obesity with BMI of 32 ? Complicating care weight loss advised 8. Allergic rhinitis ? Patient is on cetirizine 9. DVT prophylaxis ? On enoxaparin Time spent in the patient's overall evaluation,decision-making process, review of diagnostic data, adjustment of management, discussion with other providers, nursing nursing and ancillary staff involved in patient's care documentation, 52. Minutes Charges/Coding Visit Charges Inpatient E&M: 87464 Subs Hosp L3
[2024-05-20] MEDS: Ipratropium/Albuterol Sulfate 3 ML AMPUL.NEB INHALATION ×4 (07:18→18:55)
[2024-05-20] MEDS: Aspirin 81 MG TAB.CHEW PO (09:20)
[2024-05-20] MEDS: Loratadine 10 MG Tablet PO (09:20)
[2024-05-20] MEDS: Levothyroxine 150 MCG Tablet PO (09:21)
[2024-05-20] MEDS: Bumetanide 2 MG Tablet PO (09:21)
[2024-05-20] MEDS: Famotidine 20 MG Tablet PO (09:22)
--- NOTE | 2024-05-20 09:24 | EX.PCM.CONCC ---
Assessment & Plan Assessment/Plan (1) Acute on chronic respiratory failure with hypoxia and hypercapnia: (2) COPD exacerbation: PLAN: Plan RECOMMENDATIONS: 1. Continue BiPAP therapy nightly and as needed throughout the day. 2. Supplemental oxygen to maintain saturations 88 to 92%. 3. Continue scheduled bronchodilators and IV steroids. 4. Continue azithromycin for home regimen. 5. Ongoing goals of care discussion with the patient and family. IMPRESSIONS: 1. Chronic combined respiratory failure in the setting of end-stage COPD The patient is currently followed by Dr. Sabra Palacios at [facility] due to a history of end-stage COPD and chronic combined respiratory failure on maximum therapy. In fact, the patient was active with hospice care services until being admitted to the hospital. She has a documented FEV1 of 21% of predicted. She is currently maintaining oxygen saturations on 3 L/min, which is her baseline requirement along with intermittent use of BiPAP therapy, which I suspect is her norm. At this time, I have no additional new recommendations. The patient will be continued on bronchodilators and steroids. For reasons that are not entirely clear, upon revoking her hospice care status, the patient made herself a full code. I explained to her in no uncertain terms that if she were to be intubated that it would be highly unlikely that she would ever come off of the ventilator. I did also speak with her son and advocated that they transition her to DNR CCA, as I do feel that the patient would benefit from long-acting morphine sulfate and Ativan to help alleviate her air hunger. I am still awaiting the final decision regarding CODE STATUS. 2. History of chronic kidney disease/hypertension/hypothyroidism/tobacco dependency in remission/obesity Complicates care, management, recovery and prognosis. Continue supportive measures noted above. In my opinion, the patient is absolutely hospice appropriate. This note was generated with [employer] software. It may contain incorrect words, spelling, and punctuation that were not noted in checking the note before signing. HPI Consult Data Date of Consult: 05/20/24 HPI Narrative Reason for Consultation: Acute on chronic respiratory failure HPI Narrative: The patient is a 68-year-old female, with a history as outlined below, who presented to the emergency department via EMS on May 19 with shortness of breath. The patient has a well-known history of end-stage COPD with an FEV1 of 21% of predicted along with chronic hypoxemic and hypercapnic respiratory failure with a baseline oxygen requirement of 3 L/min on maximum outpatient pulmonary therapy, followed by Dr. Sabra Palacios at [facility]. In fact, the patient was actually active with home hospice care services, but apparently revoked her status to be brought into the hospital for treatment. The patient did report some associated cough and intermittent wheezing. It does appear that the patient was prescribed morphine and Ativan as part of her hospice care treatment plan. On presentation to the emergency department, the patient was documented to be afebrile and hemodynamically stable. She was documented to be saturating 99% on 3 L/min via nasal cannula. Laboratory evaluation revealed a white blood cell count of 13,000. Chemistry profile was notable for a bicarbonate of 44. Creatinine was normal at 1.12. Procalcitonin was normal. Arterial blood gas demonstrated a pH of 7.43 with a pCO2 of 67 and pO2 of 76. Chest x-ray demonstrated no acute cardiopulmonary process. The patient was placed on the same bronchodilator therapy as she utilizes on an outpatient basis along with IV steroids. She was then admitted to the medical intensive care unit for further management. I personally spoke with the patient at length this morning regarding her decision to revoke hospice care services and make herself a full code. I explained to her that unless she transitions back to a DNR CCA, if her heart were to stop or her respiratory status decline, that she would end up on the ventilator. I also explained to her that, in no uncertain terms, that it would be highly unlikely that she would ever be able to come off of the ventilator given her underlying lung pathology. I advocated that she transition herself to DNR CCA, if she wished to continue to receive care for her COPD exacerbation, as I feel that she would likely benefit from reinstituting long-acting morphine and Ativan given her baseline air hunger. However, the patient was precontemplative and stated that she needed to discuss with her son prior to transitioning her CODE STATUS. [facility] Medical History Failure of outpatient treatment Urinary tract infection due to ESBL Klebsiella Anxiety Rheumatoid arthritis Former smoker Sleep apnea Migraines Former tobacco use Allergic rhinitis CKD (chronic kidney disease), stage II HLD (hyperlipidemia) Chronic GERD Fibromyalgia Osteoporosis Stomach ulcer GERD (gastroesophageal reflux disease) Osteoarthritis Hypothyroidism Myocardial infarct COPD (chronic obstructive pulmonary disease) On home oxygen therapy Stroke/cerebrovascular accident Home Medications ?Medication ?Instructions ?Recorded ?Last Taken ?Type alendronate 70 mg tablet 70 mg PO TH OSTEOPEROSIS 04/22/14 05/19/24 History aspirin 81 mg chewable tablet 81 mg PO DAILY@0800 HEART HEALTH 04/22/14 05/19/24 History estradiol 1 mg tablet 1 mg PO QHS HORMONES 04/22/14 05/19/24 History tramadol 50 mg tablet 50 mg PO Q8H PRN PAIN 04/22/14 05/19/24 History albuterol sulfate 2.5 mg/3 mL 2.5 mg inhalation Q4H PRN WHEEZING 07/29/23 05/19/24 History (0.083 %) solution for nebulization calcium carbonate (Calcium 500) 1,000 mg PO DAILY SUPPLEMENT 07/29/23 05/19/24 History guaifenesin 600 mg tablet, 1,200 mg PO BID PRN CONGESTION 07/29/23 05/19/24 History extended release 12 hr (Mucus Relief ER) levothyroxine 150 mcg tablet 150 mcg PO DAILY THYROID 07/29/23 05/19/24 History melatonin 10 mg tablet 60 mg PO QHS SLEEP 07/29/23 05/18/24 History theophylline 80 mg/15 mL oral 80 mg PO QHS COPD 07/29/23 05/18/24 History solution bumetanide 2 mg tablet 2 mg PO DAILY 03/22/24 05/19/24 History cetirizine 10 mg tablet 10 mg PO DAILY allergies 03/22/24 05/19/24 History cranberry extract 200 mg capsule 400 mg PO DAILY 03/22/24 05/18/24 History famotidine 20 mg tablet 20 mg PO DAILY 03/22/24 03/22/24 History ipratropium 0.5 mg-albuterol 3 mg 3 ml inhalation Q4H SOB 03/22/24 05/19/24 History (2.5 mg base)/3 mL nebulization soln lorazepam 0.5 mg tablet 0.25 mg PO Q6H anxiety 03/22/24 05/19/24 History magnesium hydroxide 400 mg/5 mL 6 ml PO DAILY constipation 03/22/24 03/22/24 History oral suspension (Milk of Magnesia) morphine concentrate 100 mg/5 mL 10 mg PO Q4H PRN PRN pain 03/22/24 05/19/24 History (20 mg/mL) oral solution potassium chloride 20 mEq 20 meq PO DAILY 03/22/24 05/18/24 History tablet,extended release(part/cryst) (Klor-Con M) sennosides 8.6 mg-docusate sodium 4 tab PO BID 03/22/24 03/22/24 History 50 mg tablet (Senexon-S) azithromycin 250 mg tablet 250 mg PO UD 05/19/24 05/19/24 History ondansetron HCl 8 mg tablet 8 mg PO Q6H PRN PRN nausea/vomiting 05/19/24 Unknown History prednisone 20 mg tablet 20 mg PO DAILY 05/19/24 05/19/24 History Allergy/AdvReac Type Severity Reaction Status Date / Time amoxicillin (Amoxicillin) Allergy Hives Verified 05/19/24 14:02 Family History Mother COPD (chronic obstructive pulmonary disease) Grandmother Diabetes Paternal grandmother Brother Diabetes Father MVA (motor vehicle accident) young from MVA, no medication history otherwise. Surgical History History of nasal septoplasty History of bilateral tubal ligation History of hysterectomy History of tonsillectomy and adenoidectomy Social History household members: children number of children: 3 Smoking Status: Former smoker how long ago did patient quit smoking: Quit 10 yrs prior, smoked 1-2 ppd since teen until quit. alcohol intake: never substance use type: does not use ROS ROS Narrative 10 systems were reviewed with pertinent positives as noted in the HPI above. Physical Exam Const alert Constitutional Narrative: Chronically ill-appearing. Currently on nasal cannula oxygen at 3 L/min. General Appearance: cooperative HEENT normocephalic and head/scalp atraumatic Eyes EOMs intact bilaterally, conjunctivae normal and no scleral icterus Neck supple General: trachea midline Chest Chest Narrative: Increased AP diameter. Resp Resp Narrative: Tachypneic with pursed lip breathing. Globally diminished air movement throughout all lung [place]. Cardio regular rate and regular rhythm GI normal to inspection, nondistended, normoactive bowel sounds Extremity General Extremity: edema; Negative for clubbing Skin no rashes or lesions noted Neuro CN's II-XII intact bilaterally, moves all extremities and no focal motor deficits Psych Mood & Affect: flat affect Lab / Micro Data 05/20/24 05:20 05/20/24 05:20 Labs: Laboratory Results - last 24 hr 05/19/24 14:23: WBC 13.8 H, RBC 4.74, Hgb 13.3, Hct 42.9, MCV 90.5, MCH 28.1, MCHC 31.0 L, RDW Std Deviation 46.6 H, RDW Coeff of Vic 14.1, Plt Count 257, MPV 10.9, Immature Gran % (Auto) 0.400, Neut % (Auto) 93.5 H, Lymph % (Auto) 2.9 L, [place] % (Auto) 2.8, Eos % (Auto) 0.1, Baso % (Auto) 0.3, Absolute Neuts (auto) 12.9 H, Absolute Lymphs (auto) 0.40 L, Nucleated RBC % 0, Sodium 137, Potassium 3.5, Chloride 91 L, Carbon Dioxide 44.0 H, Anion Gap 2 L, BUN 14, Creatinine 1.12 H, Estim Creat Clear Calc 52.82, Est GFR (MDRD) Af Amer 62, Est GFR (MDRD) Non-Af 51 L, BUN/Creatinine Ratio 12.5, Glucose 166 H, Calcium 10.7 H, Troponin I High Sens 7 05/19/24 18:38: Procalcitonin 0.08 05/20/24 05:20: WBC 11.7 H, RBC 4.30, Hgb 11.9 L, Hct 38.9, MCV 90.5, MCH 27.7, MCHC 30.6 L, RDW Std Deviation 45.5 H, RDW Coeff of Vic 13.8, Plt Count 254, MPV 10.8, Immature Gran % (Auto) 0.500, Neut % (Auto) 94.0 H, Lymph % (Auto) 4.2 L, [place] % (Auto) 1.2, Eos % (Auto) 0.0, Baso % (Auto) 0.1, Absolute Neuts (auto) 11.0 H, Absolute Lymphs (auto) 0.49 L, Nucleated RBC % 0, Sodium 139, Potassium 3.6, Chloride 95 L, Carbon Dioxide 39.0 H, Anion Gap 5, BUN 15, Creatinine 1.05 H, Estim Creat Clear Calc 56.47, Est GFR (MDRD) Af Amer 67, Est GFR (MDRD) Non-Af 55 L, BUN/Creatinine Ratio 14.3, Glucose 140 H, Calcium 10.1, Total Bilirubin 0.50, AST 13 L, ALT 13, Alkaline Phosphatase 57, Total Protein 6.7, Albumin 2.9 L, Globulin 3.8, Albumin/Globulin Ratio 0.8 L Micro: Microbiology 05/19/24 17:20 Mucosa - Nasopharyngeal Respiratory Panel (PCR) - Final 05/19/24 17:45 Nasal Secretion MRSA (PCR) - Final 05/19/24 14:34 Mucosa - Nose SARS-CoV-2, Influenza & RSV (PCR) - Final ABG Data ABG results: ABG 05/19/24 15:02 Specimen Type ART Sample Site LBRACH pH 7.43 Bicarbonate Actual 44.6 H Total CO2 47 Base Excess 20 H O2 Saturation 95 O2 % 32.0 ABG pCO2 67.5 H* ABG pO2 76 O2 Delivery Device NASAL CAN Imaging Radiology Impression Chest X-Ray 05/19/24 14:41 IMPRESSION: Mild bibasilar atelectasis or scarring. Electronically Signed: Ally Pop MD at 14:55 EST , Charges/Coding Visit Charges Inpatient E&M: 89573 Init Hosp L3
[2024-05-20] MEDS: Enoxaparin 40 MG/0.4 ML Syringe SC (09:25)
--- NOTE | 2024-05-20 11:43 | CASEMGMT ---
Addendum entered by Juliana Victoria 05/20/24 12:33: Social Work [facility] hospice will be here within the hour to meet with pt and son. Nurse notified. JUS Wallace Original Note: Social Work SW met with pt and her son/HCPOA Trenton and introduced self and role of SW. Pt was currently enrolled in services through [facility]. Hospice services were revoked for pt to come to the hospital for treatment. Pt is currently a Full Code. Trenton states that he spoke with the physician on the phone this morning regarding code status and patient prognosis and Trenton has come to the hospital to talk to patient about goals of care. SW explained to Trenton and pt Full Code, DNRCCA and intubation options. Trenton was able to explain to pt conversation he had with physician. TRUMAN inquiring with pt about choice of code status and pt stating that she wants to leave it up to Trenton. Trenton asking pt if she would want to be hooked to a machine to help her breath and pt stating she would not. Trenton then stating that the best option for patient would be DNRCCA, no intubation. Pt states agreement with Allen decision. TRUMAN then spoke with pt and Trenton regarding hospice services. Both parties agree that they would want to continue with hospice services at discharge. TRUMAN discussed the Inpatient Hospice Unit at [facility] with pt and son who were not understanding of this unit. After discussion and explanation of what services this unit provides, pt stating that she wants to go to the IPU and Trenton is agreeable. TRUMAN and Trenton met with pt bedside nurse Alona and Trenton confirms wish to change code status to DNRCCA, no intubation. TRUMAN updated physician of pt's wishes for change of code status and desire to go to the IPU. Physician agreeable with referral to [facility] for evaluation for the IPU. Referral made to Danyelle at [facility] and clinical updates faxed. [facility] will schedule an appointment with pt's son to assess for the IPU. [facility] to notify SW when appointment time has been set. RN updated. TRUMAN met with pt and and Trenton and notified that referral has been made and Trenton can expect a call from [facility] today to make an appoinment. Shortened Care Coordination Assessment Completed during discussion: Care providers, pharmacy, and demographics verified. PCP: Dr. Quiroz Specialists: Dr. Sabra Palacios, pulmonology Preferred Pharmacy: [facility] Insurance: Medicaid Prescription Benefit:? yes Living Will/HPOA:? Yes, both on file. HCPOA naming Trenton Tavarez, fatou LNOK: fatou [place] Living Arrangements: Pt lives in a two story home with one step to enter with her son. Pt has a lift chair to the second floor but has not been able to us it over the last several days and has been sleeping in a recliner on the first level. Trenton states if pt is to return home, hospice will need to provide a hospital bed. Home Services: Pt is current with [facility] (although revoked to come to the hospital). Pt would like to continue with hospice. Pt has Passport services through [facility]. Pt states her life care planner is Debbi. PLAN: Pt is agreeable to discharge to the IPU at [facility]. Referral has been made. JUS Wallace
[2024-05-20] MEDS: 0.9% Saline Lock 10 ML Syringe IV (14:05)
--- NOTE | 2024-05-20 15:45 | PCM.DC.SUM ---
Providers Date of Admission: 05/19/24 Date of Discharge: 05/20/24 Primary Care Physician: Dr. Shakir Quiroz, DO Consultations 05/19/24 17:20 Consult: Senior Accounting Specialist / Pulmonary Medicine Routine Consulting Provider: Intensivists/Pulmonary Med Reason for Consult: COPD Exacerbation, Resp Distress on Chronic HRF EMERGENT Consult: No Notified: Yes Date Notified: 05/19/24 Time Notified: 16:32 Method of Notification: Text 05/20/24 11:44 Consult: Hospice / Palliative Care Routine Consulting Provider: [facility] Reason for Consult: End Stage COPD/Respiratory Failure EMERGENT Consult: No Notified: Yes Date Notified: 05/20/24 Time Notified: 11:44 Method of Notification: notified by SW Reason For Visit: RESPIRATORY DISTRESS, COPD EXACERBATION Diagnosis Discharge Diagnosis (1) Acute on chronic respiratory failure with hypoxia and hypercapnia: Status: Chronic Code(s): J96.21 - Acute and chronic respiratory failure with hypoxia; J96.22 - Acute and chronic respiratory failure with hypercapnia (2) COPD exacerbation: Status: Chronic Code(s): J44.1 - Chronic obstructive pulmonary disease with (acute) exacerbation Plan Patient is a 68-year-old lady who presented with 4-day history of progressive dyspnea, pleuritic chest discomfort as well as subjective fevers but no chills. Checks x-ray demonstrated mild bibasilar atelectasis versus scarring. Patient was found to be hypoxic and in respiratory distress and assessment of acute hypoxic respiratory failure made placed on BiPAP admitted to the intensive care unit for further management 1. Acute hypoxic and hypercapnic respiratory failure Secondary to COPD with acute exacerbation, Patient started on bronchodilator treatment, systemic steroid as well as antibiotic therapy. Patient placed on was placed on noninvasive ventilation BiPAP viral respiratory panel including COVID sent 2. Chronic kidney disease stage III ? Kidney function at baseline 3. Hypertension ? Blood pressure controlled, home medications continued with dose adjustment as needed 4. Hypothyroidism ? Patient is on levothyroxine home dose continued 5. Chronic hypoxic respiratory failure ? Patient is on base line home oxygen 3 L at rest 6. History of gastric ulcer ? Patient is on famotidine 7. Class I obesity with BMI of 32 ? Complicating care weight loss advised 8. Allergic rhinitis ? Patient is on cetirizine 9. DVT prophylaxis ? On enoxaparin Time spent in the patient's overall evaluation,decision-making process, review of diagnostic data, adjustment of management, discussion with other providers, nursing nursing and ancillary staff involved in patient's care documentation, 52. Minutes Patient's family after discussion with case management requested for hospice consultation. Patient was seen and assessed by hospice accepted for transfer to hospice in a medical facility Medications at Discharge Home Medications estradiol 1 mg tablet 1 mg PO QHS HORMONES 04/22/14 tramadol 50 mg tablet 50 mg PO Q8H PRN PAIN 04/22/14 albuterol sulfate 2.5 mg/3 mL (0.083 %) solution for nebulization 2.5 mg inhalation Q4H PRN WHEEZING 07/29/23 calcium carbonate (Calcium 500) 1,000 mg PO DAILY SUPPLEMENT 07/29/23 guaifenesin 600 mg tablet, extended release 12 hr (Mucus Relief ER) 1,200 mg PO BID PRN CONGESTION 07/29/23 levothyroxine 150 mcg tablet 150 mcg PO DAILY THYROID 07/29/23 melatonin 10 mg tablet 60 mg PO QHS SLEEP 07/29/23 theophylline 80 mg/15 mL oral solution 80 mg PO QHS COPD 07/29/23 bumetanide 2 mg tablet 2 mg PO DAILY 03/22/24 cetirizine 10 mg tablet 10 mg PO DAILY allergies 03/22/24 cranberry extract 200 mg capsule 400 mg PO DAILY 03/22/24 famotidine 20 mg tablet 20 mg PO DAILY 03/22/24 ipratropium 0.5 mg-albuterol 3 mg (2.5 mg base)/3 mL nebulization soln 3 ml inhalation Q4H SOB 03/22/24 lorazepam 0.5 mg tablet 0.25 mg PO Q6H anxiety 03/22/24 magnesium hydroxide 400 mg/5 mL oral suspension (Milk of Magnesia) 6 ml PO DAILY constipation 03/22/24 morphine concentrate 100 mg/5 mL (20 mg/mL) oral solution 10 mg PO Q4H PRN PRN pain 03/22/24 potassium chloride 20 mEq tablet,extended release(part/cryst) (Klor-Con M) 20 meq PO DAILY 03/22/24 sennosides 8.6 mg-docusate sodium 50 mg tablet (Senexon-S) 4 tab PO BID 03/22/24 ondansetron HCl 8 mg tablet 8 mg PO Q6H PRN PRN nausea/vomiting 05/19/24 prednisone 20 mg tablet 20 mg PO DAILY 05/19/24 Physical Exam Narrative GENERAL: Patient is on BiPAP HEENT: Atraumatic; normocephalic EYES; Anicteric, Normal Conjunctiva NECK; supple, normal thyroid, RESPIRATORY: Diminished to auscultation CARDIOVASCULAR: Regular S1 S2, GI: soft, normoactive bowel sounds, : No Renal angle tenderness; EXTREMITIES: No edema, no clubbing, MUSCULOSKELETAL: no muscle wasting NEURO: Awake; no lateralizing signs. SKIN: No Rash PSYCH; Flat affect Weight / BMI Weight Weight: 86.5 kg Body Mass Index (BMI) 31.7 ABG / Lab / Microbiology Data 05/20/24 05:20 05/20/24 05:20 Laboratory: Laboratory Results - last 24 hr 05/19/24 18:38: Procalcitonin 0.08 05/20/24 05:20: WBC 11.7 H, RBC 4.30, Hgb 11.9 L, Hct 38.9, MCV 90.5, MCH 27.7, MCHC 30.6 L, RDW Std Deviation 45.5 H, RDW Coeff of Vic 13.8, Plt Count 254, MPV 10.8, Immature Gran % (Auto) 0.500, Neut % (Auto) 94.0 H, Lymph % (Auto) 4.2 L, [place] % (Auto) 1.2, Eos % (Auto) 0.0, Baso % (Auto) 0.1, Absolute Neuts (auto) 11.0 H, Absolute Lymphs (auto) 0.49 L, Nucleated RBC % 0, Sodium 139, Potassium 3.6, Chloride 95 L, Carbon Dioxide 39.0 H, Anion Gap 5, BUN 15, Creatinine 1.05 H, Estim Creat Clear Calc 56.47, Est GFR (MDRD) Af Amer 67, Est GFR (MDRD) Non-Af 55 L, BUN/Creatinine Ratio 14.3, Glucose 140 H, Calcium 10.1, Total Bilirubin 0.50, AST 13 L, ALT 13, Alkaline Phosphatase 57, Total Protein 6.7, Albumin 2.9 L, Globulin 3.8, Albumin/Globulin Ratio 0.8 L Microbiology: Microbiology 05/19/24 17:20 Mucosa - Nasopharyngeal Respiratory Panel (PCR) - Final 05/19/24 17:45 Nasal Secretion MRSA (PCR) - Final 05/19/24 14:34 Mucosa - Nose SARS-CoV-2, Influenza & RSV (PCR) - Final ABG: ABG 05/19/24 15:02 Specimen Type ART Sample Site LBRACH pH 7.43 Bicarbonate Actual 44.6 H Total CO2 47 Base Excess 20 H O2 Saturation 95 O2 % 32.0 ABG pCO2 67.5 H* ABG pO2 76 O2 Delivery Device NASAL CAN D/C Instructions Discharge Diet: No restrictions Discharge Activity: Return to Normal Activity Call your doctor if you observe: Fever of 101 or Higher, Shortness of breath, Fainting spells and Chest pain DC O2, CPAP, BIPAP Needs PSN CPAP & BiPAP: BiPAP & CPAP Settings per PSN Mode BiPAP 05/20/24 07:18 Bipap Delivery Device Face Mask 05/20/24 07:18 BiPAP Inspiratory Pressure 16 05/20/24 07:18 BiPAP Expiratory Pressure 10 05/20/24 07:18 BiPAP Rate 12 05/20/24 07:18 Fraction of Inspired Oxygen ( 30 05/20/24 13:00 FIO2) Home O2 Discharge instructions: No Meaningful Use Info Meaningful Use Meaningful Use Diagnoses (Choose all that apply): None applicable Ischemic Stroke Statin Dosing Therapy Reference: STATIN DOSE THERAPY REFERENCE: * Patients > 75 years receive moderate or high dose statin therapy. * Patients 75 years or YOUNGER should receive HIGH intensity statin dose unless contraindicated. You will be required to document reason for non-treatment if statin daily dose does not meet guidelines. HIGH DOSE STATIN THERAPY DAILY Atorvastatin > than or = to 40 mg Rosuvastatin > than or = to 20 mg Amlodipine + Atorvastatin > than or = to 2.5/40 mg Ezetimibe + Simvastatin 10/80 mg Simvastatin 80mg Discharge Plan Admission Admit Date/Time: 05/19/24 16:27 Attending Provider: Mukund Stern Primary Care Provider: Shakir Quiroz Consulting Providers: Viktoriya Wesley; Mukund Mcdowell; Che Huber; Ileana Lang; Qi Eng; Ros Najera POLE SHAVER; Annie Robison Discharge Orders/Prescriptions Prescriptions: Continued tramadol 50 MG tablet 50 mg PO Q8H PRN (Reason: PAIN ) estradiol 1 MG tablet 1 mg PO QHS albuterol sulfate 2.5 mg /3 mL (0.083 %) solution for nebulization 2.5 mg inhalation Q4H PRN (Reason: WHEEZING ) levothyroxine 150 mcg tablet 150 mcg PO DAILY guaifenesin [Mucus Relief ER] 600 mg tablet extended release 12hr 1,200 mg PO BID PRN (Reason: CONGESTION ) theophylline 80 mg/15 mL solution 80 mg PO QHS calcium carbonate [Calcium 500] 500 mg calcium (1,250 mg) tablet,chewable 1,000 mg PO DAILY melatonin 10 mg tablet 60 mg PO QHS ipratropium-albuterol 0.5 mg-3 mg(2.5 mg base)/3 mL solution for nebulization 3 ml inhalation Q4H bumetanide 2 mg tablet 2 mg PO DAILY cetirizine 10 mg tablet 10 mg PO DAILY sennosides-docusate sodium [Senexon-S] 8.6-50 mg tablet 4 tab PO BID potassium chloride [Klor-Con M20] 20 mEq tablet,ER particles/crystals 20 meq PO DAILY famotidine 20 mg tablet 20 mg PO DAILY lorazepam 0.5 mg tablet 0.25 mg PO Q6H magnesium hydroxide [Milk of Magnesia] 400 mg/5 mL suspension 6 ml PO DAILY morphine concentrate 100 mg/5 mL (20 mg/mL) solution 10 mg PO Q4H PRN PRN (Reason: pain) Patient Comments: pt states she has been taking 0.25ml in the am and if no relief takes another 0.25ml cranberry extract 200 mg capsule 400 mg PO DAILY Rx Instructions: administer with a meal ondansetron HCl 8 mg tablet 8 mg PO Q6H PRN PRN (Reason: nausea/vomiting) prednisone 20 mg tablet 20 mg PO DAILY Discontinued alendronate 70 MG tablet 70 mg PO TH aspirin 81 MG tablet,chewable 81 mg PO DAILY@0800 azithromycin 250 mg tablet 250 mg PO UD Rx Instructions: zpak started 05/18 following pkg directions Referrals / Follow Up: Shakir Quiroz DO [Primary Care Provider] - Within 2 Weeks Disposition Disposition (needs filled in before D/C Order can be placed): Hospice in Medical Facility Charges/Coding Visit Charges Inpatient E&M: 05811 Disch Hosp >30min
--- NOTE | 2024-05-20 17:31 | NURSING ---
Report called to inpatient hospice unit. They are arranging transport and will call with an ETA
== END 2024-05-20 19:17 | disposition hospice, inpatient (51) | DRG 133 ==
LOC: ED 14:29 → ICU 16:53
PROVIDERS: Physician Assistant; Admitting Provider Family Medicine; Emergency Provider Emergency Medicine; PCP Student in an Organized Health Care Education/Training Program; Visit Provider Internal Medicine
DX: J96.21 Acute and chronic respiratory failure with hypoxia (principal); J44.1 Chronic obstructive pulmonary disease with (acute) exacerbation; Z99.81 Dependence on supplemental oxygen; N18.30 Chronic kidney disease, stage 3 unspecified; I12.9 Hypertensive chronic kidney disease with stage 1 through stage 4 chronic kidney disease, or unspecified chronic kidney disease; E03.9 Hypothyroidism, unspecified; Z68.32 Body mass index [BMI] 32.0-32.9, adult; J96.22 Acute and chronic respiratory failure with hypercapnia; E78.5 Hyperlipidemia, unspecified; K21.9 Gastro-esophageal reflux disease without esophagitis; J30.9 Allergic rhinitis, unspecified; I25.2 Old myocardial infarction; F41.9 Anxiety disorder, unspecified; I89.0 Lymphedema, not elsewhere classified; Z87.891 Personal history of nicotine dependence; Z79.890 Hormone replacement therapy; Z90.710 Acquired absence of both cervix and uterus; E66.811 Obesity, class 1; Z86.73 Personal history of transient ischemic attack (TIA), and cerebral infarction without residual deficits; M81.0 Age-related osteoporosis without current pathological fracture; Z79.899 Other long term (current) drug therapy; Z79.82 Long term (current) use of aspirin; Z98.51 Tubal ligation status; G47.00 Insomnia, unspecified
CPT/HCPCS: 36600; 71045; 80048; 80053; 82803; 84145; 84484; 85025; 87070; 87205; 87631; 87633; 87641; 93005; 94002; 94003; 94640; 97802; 99285; A4216